=== PATIENT | male | born 1995 | race American Indian/Alaskan Native ===

== ENCOUNTER 2016-03-08 10:00 | Emergency (ER) | payer SELFPAY ==
[2016-03-08 10:34] VITALS: BP 184/121
--- NOTE | 2016-03-08 10:45 | Emergency Department Report ---
Chief Complaint: High BP Stated Complaint: VOMITING/ELEVATED B/P/HEADACHE Time Seen by Provider: 03/08/16 10:43 - HPI History of Present Illness: 20 year old male with hx of htn, CHF presents with throbbing right sided headache with associated NV earlier today with elevated BP. states taking all medication this morning. denies other symptoms. - Exam Vital Signs: Vital Signs 03/08/16 10:30 Temperature 98.4 F Pulse Rate 75 Respiratory 18 Rate Blood Pressure 184/121 O2 Sat by Pulse 100 Oximetry Physical Exam: patient AOX3 BP is elevated normal gait and coordination. MSE screening note: Focused history and physical exam performed. Due to findings the following was ordered: due to patient PMH and presenting symptoms, labwork and EKG was ordered until seen in the main side. ED Disposition for MSE Condition: Stable
[2016-03-08 11:51] LABS: Basophils % (Auto) 0.6 % (0.0-1.8); Eosinophils % (Auto) 1.4 % (0.0-4.3); Hemoglobin 13.2 gm/dl (11.8-15.2); Mean Corpuscular HGB Conc 32 % (32-34); Mean Corpuscular Hemoglobin 27 pg (28-32); Mean Corpuscular Volume 83 fl (84-94); Platelet Count 247 K/mm3 (140-440); Red Blood Count 4.96 M/mm3 (3.65-5.03); White Blood Count 5.4 K/mm3 (4.5-11.0)
[2016-03-08 12:05] LABS: Albumin/Globulin Ratio 1.2 %; BUN/Creatinine Ratio 8.88; Bilirubin,Total 0.4 mg/dL (0.1-1.2); Calcium 8.8 mg/dL (8.4-10.2); Chloride 103.1 mmol/L (98-107); Potassium 4.4 mmol/L (3.6-5.0); Total Protein 7.4 g/dL (6.3-8.2)
--- NOTE | 2016-03-12 00:36 | ED Elopement Review ---
ED Pt Elopement review - Results review Lab results: Laboratory Tests 03/08/16 03/08/16 11:34 11:34 WBC 5.4 RBC 4.96 Hgb 13.2 Hct 41.0 MCV 83 L MCH 27 L MCHC 32 RDW 14.0 Plt Count 247 Lymph % (Auto) 14.0 [place] % (Auto) 8.2 H Eos % (Auto) 1.4 Baso % (Auto) 0.6 Lymph # 0.8 L [place] # 0.4 Eos # 0.1 Baso # 0.0 Seg Neutrophils % 75.8 H Seg Neutrophils # 4.1 Sodium 139 Potassium 4.4 Chloride 103.1 Carbon Dioxide 20 L Anion Gap 20 BUN 48 H Creatinine 5.4 H Estimated GFR 16 BUN/Creatinine Ratio 8.88 Glucose 89 Calcium 8.8 Total Bilirubin 0.4 AST 16 ALT 10 Alkaline Phosphatase 60 Total Protein 7.4 Albumin 4.0 Albumin/Globulin Ratio 1.2 - Call Back decision Pt Call Back Decision: Call pt to return to ED CHUY (hypertension with headache may require further investigation. Consider CT head)
== END 2016-03-09 00:15 | disposition left against medical advice (07) ==
LOC: ED 10:00
DX: R11.10 Vomiting, unspecified (principal); R51 Headache; Z53.21 Procedure and treatment not carried out due to patient leaving prior to being seen by health care provider
CPT/HCPCS: 36415; 80053; 85025

== ENCOUNTER 2017-08-15 01:18 | Emergency (ER) | payer MEDICAID ==
[2017-08-15] MEDS ORDERED: ZOFRAN ODT ONE (03:16)
[2017-08-15] MEDS ORDERED: CATAPRES ONE (03:16)
[2017-08-15] MEDS ORDERED: ZOFRAN ODT PO ONE (03:21)
[2017-08-15] MEDS ORDERED: CATAPRES PO ONE (03:21)
[2017-08-15 03:25] LABS: Hematocrit 45.2 % (35.5-45.6); Hemoglobin 14.9 gm/dl (11.8-15.2); Mean Corpuscular HGB Conc 33 % (32-34); Mean Corpuscular Hemoglobin 29 pg (28-32); Mean Corpuscular Volume 87 fl (84-94); Platelet Count 255 K/mm3 (140-440); Red Blood Count 5.19 M/mm3 (3.65-5.03)
[2017-08-15 03:44] LABS: Calcium 9.1 mg/dL (8.4-10.2)
[2017-08-15 03:50] LABS: INR 0.88 (0.87-1.13)
--- NOTE | 2017-08-15 03:57 | Cat Scan Report ---
FINAL REPORT EXAM: CT HEAD/BRAIN WO CON HISTORY: HTN and headache COMPARISON: None available. TECHNIQUE: Axial images obtained skull base through vertex. FINDINGS: No acute intracranial hemorrhage, midline shift or pathologic extra axial fluid collection. Mild asymmetry lateral ventricles, benign variant. Ventricles and cisterns are normal in size and configuration for the patient's age. Leigh-white differentiation preserved. Calvarium grossly intact. Visualized ocular globes are grossly unremarkable. Visualized para-nasal sinuses and mastoid air cells are clear. IMPRESSION: No grossly acute intracranial abnormality.
[2017-08-15] MEDS ORDERED: NORCO 5/325 PO ONE (06:50)
--- NOTE | 2017-08-15 06:53 | Emergency Department Report ---
HPI - General Chief Complaint: High BP Time Seen by Provider: 08/15/17 06:10 - HPI HPI: 21-year-old male presents to the emergency department with complaint of uncontrolled hypertension and a headache. Headache has been going on since 5 PM yesterday. When he first came into the hospital it was 10 out of 10 in intensity but I saw the patient just after coming onto shift this morning and he currently says it is 3 out of 10. His blood pressure when he came in was 193/118 and it is much improved now down to about 156/98 with some clonidine given overnight. Patient has a history of hypertension issues that caused him to become end-stage renal disease on hemodialysis on Monday/Monday /Monday and he did have his dialysis yesterday, Monday. His restaurant hospitality manager is Dr. Fernández and he does not have a primary care physician. He did not take anything for her symptoms prior presentation. He denies any tobacco or illicit drug use or abuse. He denies any fever, chest pain, shortness of breath, nausea , vomiting, vision change or slurred speech. ED Past Medical Hx - Past Medical History Previous Medical History?: Yes Hx Hypertension: Yes Hx Congestive Heart Failure: No Hx Diabetes: No Hx Renal Disease: Yes (HD M,W,F Dr. Randall) Hx Asthma: No Hx COPD: No Hx HIV: No - Surgical History Past Surgical History?: Yes Additional Surgical History: Dialysis access - Social History Smoking Status: Never Smoker - Medications Home Medications: Home Medications Medication Instructions Recorded Confirmed Last Taken Type Carvedilol [Coreg] 25 mg PO BID #60 tablet 09/10/14 01/11/16 01/11/16 Rx Ondansetron [Zofran ODT TAB] 4 mg PO Q8HR #20 tab.rapdis 01/11/16 Unknown Rx Pantoprazole [Protonix TAB] 40 mg PO QDAY #30 tablet 01/11/16 Unknown Rx oxyCODONE /ACETAMINOPHEN [Percocet 1 tab PO Q6HR PRN #20 tablet 01/11/16 Unknown Rx 5/325 mg] Bumetanide [Bumex 1 mg tab] 1 mg PO QDAY #30 tablet 01/18/16 Unknown Rx Minoxidil [Loniten] 10 mg PO BID 30 Days tablet 01/18/16 Unknown Rx NIFEdipine XL [Procardia Xl] 120 mg PO QDAY #30 tablet 01/18/16 Unknown Rx Spironolactone [Aldactone] 25 mg PO QDAY #30 tablet 01/18/16 Unknown Rx cloNIDine [Catapres] 0.3 mg PO Q8HR 90 Days tablet 01/18/16 Unknown Rx ED Review of Systems ROS: Stated complaint: HYPERTENSIVE Other details as noted in HPI Comment: All other systems reviewed and negative Constitutional: denies: chills, fever Eyes: denies: eye pain, eye discharge, vision change ENT: denies: ear pain, throat pain Respiratory: denies: cough, shortness of breath, wheezing Cardiovascular: denies: chest pain, palpitations Gastrointestinal: denies: abdominal pain, nausea, diarrhea Genitourinary: denies: urgency, dysuria Musculoskeletal: denies: back pain, joint swelling, arthralgia Skin: denies: rash, lesions Neurological: headache. denies: weakness Physical Exam - Physical Exam Vital Signs: Vital Signs 08/15/17 08/15/17 08/15/17 02:28 02:55 03:24 Temperature 98.4 F 98.4 F Pulse Rate 100 H 99 H 99 H Respiratory 16 16 Rate Blood Pressure 193/118 193/118 193/118 Blood Pressure [Left] O2 Sat by Pulse 98 96 Oximetry 08/15/17 08/15/17 08/15/17 04:49 05:00 05:04 Temperature Pulse Rate 82 Respiratory 20 Rate Blood Pressure 149/96 Blood Pressure 165/98 [Left] O2 Sat by Pulse 96 96 100 Oximetry 08/15/17 08/15/17 08/15/17 05:16 05:30 05:45 Temperature Pulse Rate Respiratory Rate Blood Pressure 149/96 155/88 Blood Pressure [Left] O2 Sat by Pulse 97 93 95 Oximetry 08/15/17 06:00 Temperature Pulse Rate Respiratory Rate Blood Pressure 165/90 Blood Pressure [Left] O2 Sat by Pulse 93 Oximetry Physical Exam: GENERAL: The patient is well-developed well-nourished. HENT: Normocephalic. Atraumatic. Patient has moist mucous membranes. EYES: Extraocular motions are intact. Pupils equal reactive to light bilaterally. No nystagmus. NECK: Supple. Trachea is midline. CHEST/LUNGS: Clear to auscultation. There is no respiratory distress noted. HEART/CARDIOVASCULAR: Regular. There is no tachycardia. There is no murmur. ABDOMEN: Abdomen is soft, nontender. Patient has normal bowel sounds. There is no abdominal distention. SKIN: Skin is warm and dry. NEURO: The patient is awake, alert, and oriented. The patient is cooperative. The patient has no focal neurologic deficits. The patient has normal speech. Cranial nerves II through XII grossly intact. MUSCULOSKELETAL: There is no tenderness or deformity. There is no evidence of acute injury. There appears to be a patent left upper extremity dialysis fistula. ED Course Vital Signs 08/15/17 08/15/17 08/15/17 02:28 02:55 03:24 Temperature 98.4 F 98.4 F Pulse Rate 100 H 99 H 99 H Respiratory 16 16 Rate Blood Pressure 193/118 193/118 193/118 Blood Pressure [Left] O2 Sat by Pulse 98 96 Oximetry 08/15/17 08/15/17 08/15/17 04:49 05:00 05:04 Temperature Pulse Rate 82 Respiratory 20 Rate Blood Pressure 149/96 Blood Pressure 165/98 [Left] O2 Sat by Pulse 96 96 100 Oximetry 08/15/17 08/15/17 08/15/17 05:16 05:30 05:45 Temperature Pulse Rate Respiratory Rate Blood Pressure 149/96 155/88 Blood Pressure [Left] O2 Sat by Pulse 97 93 95 Oximetry 08/15/17 06:00 Temperature Pulse Rate Respiratory Rate Blood Pressure 165/90 Blood Pressure [Left] O2 Sat by Pulse 93 Oximetry ED Medical Decision Making - Lab Data Result diagrams: 08/15/17 03:05 08/15/17 03:05 - Radiology Data Radiology results: report reviewed CT of the head does not show any acute intracranial process including no ischemia, shift, mass, bleeding or skull fracture. - Medical Decision Making Patient presented with some later blood pressure and a headache. This morning he was given some clonidine and some Zofran. CT of the head did not show any bleed, shift, mass or any acute process. His blood pressure came down to a more reasonable level and with it the headache decreased in intensity. He was given a [place] prior to discharge to help finish off the headache. No focal, motor or sensory deficits and his cranial nerves are intact. His labs otherwise show some renal sufficiency but he has end-stage renal disease on hemodialysis. He has been encouraged to follow up with his primary care physician, restaurant hospitality manager and continue with his dialysis regiment. He'll return to the ER with any worsening of his symptoms or any acute distress. - Differential Diagnosis tension headache, migraine, cluster headache, brain bleed Critical Care Time: No Critical care attestation.: If time is entered above; I have spent that time in minutes in the direct care of this critically ill patient, excluding procedure time. ED Disposition Clinical Impression: Hypertensive urgency, ESRD (end stage renal disease) on dialysis Headache Qualifiers: Headache type: unspecified Headache chronicity pattern: acute headache Intractability: not intractable Qualified Code(s): R51 - Headache Disposition: DC-01 TO HOME OR SELFCARE Is pt being admited?: No Condition: Good Instructions: Chronic Kidney Disease (ED), Acute Headache (ED), Hypertension ( ED) Additional Instructions: Please follow-up with your restaurant hospitality manager and continue your dialysis schedule. Return to the emergency Department with any worsening of your symptoms or with any acute distress. Referrals: PRIMARY MD OSMANI [Primary Care Provider] - 3-5 Days SHANIQUA RANDALL MD [Staff Physician] - 3-5 Days [facility] [Outside] - 3-5 Days Forms: Accompanied Note, Work/School Release Form(ED) Time of Disposition: 07:04
[2017-08-15 07:56] VITALS: BP 156/89
== END 2017-08-15 07:43 | disposition home or self-care (01) ==
LOC: ED 01:18
DX: I12.0 Hypertensive chronic kidney disease with stage 5 chronic kidney disease or end stage renal disease (principal); N18.6 End stage renal disease; Z99.2 Dependence on renal dialysis; R51 Headache
CPT/HCPCS: 36415; 70450; 80048; 85027; 85610; 85730; Q0162

== ENCOUNTER 2018-09-13 12:00 | Outpatient (CLI) | payer MEDICAID ==
--- NOTE | 2018-09-13 13:10 | XRay Report ---
CHEST 2 VIEWS INDICATION: R04.2 HEMOPTYSIS. COMPARISON: FINDINGS: Support devices: None. Heart: Within normal limits. Lungs/pleura: No acute air space or interstitial disease. No pneumothorax. Additional findings: None. IMPRESSION: No acute findings. Signer Name: Raphael Kemp Jr, MD Signed: 09/13/2018 1:06 PM Workstation Name: [id number]
== END 2018-09-13 12:01 | disposition home or self-care (01) ==
LOC: XRAY 12:00
PROVIDERS: ATTEND Internal Medicine
DX: R04.2 Hemoptysis (principal); I13.0 Hypertensive heart and chronic kidney disease with heart failure and stage 1 through stage 4 chronic kidney disease, or unspecified chronic kidney disease; I50.9 Heart failure, unspecified; N18.3 Chronic kidney disease, stage 3 (moderate)
CPT/HCPCS: 71046

== ENCOUNTER 2018-09-27 09:18 | Outpatient (CLI) | payer MEDICAID ==
[2018-09-27 11:08] LABS: Hemoglobin 9.9 gm/dl (11.8-15.2); Mean Corpuscular HGB Conc 33 % (32-34); Mean Corpuscular Volume 88 fl (84-94); Platelet Count 335 K/mm3 (140-440); Red Blood Count 3.42 M/mm3 (3.65-5.03); Red Cell Distribution Width 15.9 % (13.2-15.2)
[2018-09-27 11:36] LABS: Chol/HDL Ratio 2.87 %
== END 2018-09-27 09:19 | disposition home or self-care (01) ==
LOC: LAB 09:18
PROVIDERS: ATTEND Internal Medicine
DX: Z13.220 Encounter for screening for lipoid disorders (principal); Z13.1 Encounter for screening for diabetes mellitus; I10 Essential (primary) hypertension
CPT/HCPCS: 36415; 80061; 83036; 84443; 85027

== ENCOUNTER 2018-10-31 12:32 | Outpatient (CLI) | payer MEDICAID ==
--- NOTE | 2018-10-31 14:50 | Cat Scan Report ---
CT chest wo con INDICATION / CLINICAL INFORMATION: R04.2 HEMOPTYSIS. TECHNIQUE: All CT scans at this location are performed using CT dose reduction for ALARA by means of automated e xposure control. COMPARISON: None available. FINDINGS: There is mild generalized cardiomegaly with prominence of the central pulmonary vessels. There is mil d diffuse interstitial lung disease, more prominent in the lower lung zones, with Rodríguez B lines pres ent. There are small bilateral pleural effusions. The tracheobronchial tree is normal. I see no evidence of consolidation, mass or adenopathy. The visu alized upper abdomen is normal. There are few Schmorl's nodes scattered throughout the thoracic spine . IMPRESSION:Cardiomegaly and mild congestive heart failure. Signer Name: Lei Sheth MD Signed: 10/31/2018 2:45 PM Workstation Name: [id number]
== END 2018-10-31 12:33 | disposition home or self-care (01) ==
LOC: CT 12:32
PROVIDERS: ATTEND Internal Medicine
DX: I11.0 Hypertensive heart disease with heart failure (principal); I50.9 Heart failure, unspecified
CPT/HCPCS: 71250

== ENCOUNTER 2019-02-26 00:40 | Inpatient (IN) | payer MEDICAID ==
--- NOTE | 2019-02-26 00:58 | Emergency Department Report ---
ED Shortness of Breath HPI - General Chief Complaint: Dyspnea/Respdistress Stated Complaint: SOB Time Seen by Provider: 02/26/19 00:50 Source: patient, EMS Mode of arrival: Stretcher Limitations: No Limitations - History of Present Illness Initial Comments: Patient is 23 years old male with history of end stage renal disease on hemodialysis. Patient brought to the emergency room via EMS for evaluation of shortness of breath and difficulty breathing since last night. Patient stated that he missed his dialysis yesterday. Patient denied any chest pain, fever or chills. MD Complaint: shortness of breath, cough -: Last night Severity: moderate Treatments Prior to Arrival: oxygen - Related Data Home Medications Medication Instructions Recorded Confirmed Last Taken Clonidine HCl [Catapres] 0.3 mg PO BID 02/26/19 02/26/19 Unknown Hydralazine HCl 50 mg PO BID 02/26/19 02/26/19 Unknown Previous Rx's Medication Instructions Recorded Last Taken Type carvediloL [Coreg] 25 mg PO BID #60 tablet 09/10/14 01/11/16 Rx Ondansetron [Zofran ODT TAB] 4 mg PO Q8HR #20 tab.rapdis 01/11/16 Unknown Rx Pantoprazole [Protonix TAB] 40 mg PO QDAY #30 tablet 01/11/16 Unknown Rx NIFEdipine XL [Procardia Xl] 120 mg PO QDAY #30 tablet 01/18/16 Unknown Rx Allergies Allergy/AdvReac Type Severity Reaction Status Date / Time No Known Allergies Allergy Unverified 06/30/13 16:18 ED Review of Systems ROS: Stated complaint: SOB Other details as noted in HPI Comment: All other systems reviewed and negative Constitutional: denies: chills, fever Respiratory: cough, orthopnea, shortness of breath, SOB with exertion, SOB at rest. denies: wheezing Cardiovascular: dyspnea on exertion, orthopnea. denies: chest pain, palpitations ED Past Medical Hx - Past Medical History Previous Medical History?: Yes Hx Hypertension: Yes Hx Congestive Heart Failure: No Hx Diabetes: No Hx Renal Disease: Yes (HD M,W,F Dr. Randall) Hx Asthma: No Hx COPD: No Hx HIV: No - Surgical History Past Surgical History?: Yes Additional Surgical History: Dialysis access - Social History Smoking Status: Current Every Day Smoker Substance Use Type: None - Medications Home Medications: Home Medications Medication Instructions Recorded Confirmed Last Taken Type carvediloL [Coreg] 25 mg PO BID #60 tablet 09/10/14 02/26/19 01/11/16 Rx Ondansetron [Zofran ODT TAB] 4 mg PO Q8HR #20 tab.rapdis 01/11/16 02/26/19 Unknown Rx Pantoprazole [Protonix TAB] 40 mg PO QDAY #30 tablet 01/11/16 02/26/19 Unknown Rx NIFEdipine XL [Procardia Xl] 120 mg PO QDAY #30 tablet 01/18/16 02/26/19 Unknown Rx Clonidine HCl [Catapres] 0.3 mg PO BID 02/26/19 02/26/19 Unknown History Hydralazine HCl 50 mg PO BID 02/26/19 02/26/19 Unknown History ED Physical Exam - General Limitations: No Limitations General appearance: alert, in distress (moderate respiratory distress) - Head Head exam: Present: atraumatic, normocephalic, normal inspection - Eye Eye exam: Present: normal appearance - ENT ENT exam: Present: normal exam, normal orophraynx, mucous membranes moist - Neck Neck exam: Present: normal inspection, full ROM. Absent: tenderness, meningismus, lymphadenopathy, thyromegaly - Respiratory Respiratory exam: Present: respiratory distress, rales, rhonchi, decreased breath sounds. Absent: wheezes, stridor, accessory muscle use, prolonged expiratory - Cardiovascular Cardiovascular Exam: Present: regular rate, normal rhythm, normal heart sounds - GI/Abdominal GI/Abdominal exam: Present: soft, normal bowel sounds. Absent: distended, tenderness, guarding, rebound, rigid, organomegaly, mass, bruit, pulsatile mass, hernia - Extremities Exam Extremities exam: Present: normal inspection, full ROM, normal capillary refill. Absent: tenderness, pedal edema, calf tenderness - Back Exam Back exam: Present: normal inspection, full ROM. Absent: CVA tenderness (R), CVA tenderness (L) - Neurological Exam Neurological exam: Present: alert, oriented X3, CN II-XII intact, normal gait, reflexes normal - Psychiatric Psychiatric exam: Present: normal mood - Skin Skin exam: Present: warm, intact, normal color ED Course Vital Signs 02/26/19 02/26/19 02/26/19 00:50 01:00 01:16 Temperature 99.7 F H Pulse Rate 110 H 110 H 108 H Respiratory 15 15 20 Rate Blood Pressure 180/97 180/97 189/119 Blood Pressure 180/97 [Right] O2 Sat by Pulse 97 97 97 Oximetry 02/26/19 02/26/19 02/26/19 01:30 02:00 02:28 Temperature Pulse Rate 112 H 108 H 110 H Respiratory 29 H 29 H Rate Blood Pressure 187/123 184/110 179/109 Blood Pressure [Right] O2 Sat by Pulse 95 95 Oximetry 02/26/19 02/26/19 02:30 02:46 Temperature Pulse Rate 110 H 113 H Respiratory 16 27 H Rate Blood Pressure 179/109 188/120 Blood Pressure [Right] O2 Sat by Pulse 96 96 Oximetry ED Medical Decision Making - Lab Data Result diagrams: 02/26/19 00:59 02/26/19 00:59 - EKG Data -: EKG Interpreted by Me EKG shows normal: sinus rhythm Rate: tachycardia - EKG Data Interpretation: no acute changes - Radiology Data Radiology results: report reviewed - Medical Decision Making Patient is 23 years old male with history of end stage renal disease on hemodialysis. Patient brought to the emergency room via EMS for evaluation of shortness of breath and difficulty breathing since last night. Patient stated that he missed his dialysis yesterday. Patient denied any chest pain, fever or chills. Labs reviewed and is unremarkable except for chronic elevation of his creatinine. Chest x-ray showed bilateral pleural effusion. Potassium is 3.7. Patient is in obvious volume overload status. I discussed the patient with Dr. Colon, nephrologists, she advised to admitted patient to the hospitalist and they will do dialysis in the morning. I discussed the patient with Dr. Rhodes, he agreed to admit the patient to medical service for further management. Critical Care Time: Yes Critical care time in (mins) excluding proc time.: 30 Critical care attestation.: If time is entered above; I have spent that time in minutes in the direct care of this critically ill patient, excluding procedure time. ED Disposition Clinical Impression: Volume overload, End-stage renal disease needing dialysis, Shortness of breath, Hypertensive emergency Disposition: OP ADMIT IP TO THIS HOSP Is pt being admited?: Yes Condition: Stable Instructions: Hypertension (ED)
[2019-02-26 01:41] LABS: Basophils % (Auto) 0.3 % (0.0-1.8); Eosinophils # (Auto) 0.1 K/mm3 (0.0-0.4); Eosinophils % (Auto) 1.4 % (0.0-4.3); Hematocrit 32.7 % (35.5-45.6); Hemoglobin 10.7 gm/dl (11.8-15.2); Lymphocytes # (Auto) 0.2 K/mm3 (1.2-5.4); Lymphocytes % (Auto) 2.1 % (13.4-35.0); Mean Corpuscular HGB Conc 33 % (32-34); Mean Corpuscular Volume 87 fl (84-94); Monocytes # (Auto) 0.7 K/mm3 (0.0-0.8); Monocytes % (Auto) 7.2 % (0.0-7.3); Platelet Count 261 K/mm3 (140-440); Red Blood Count 3.75 M/mm3 (3.65-5.03); Red Cell Distribution Width 16.6 % (13.2-15.2)
--- NOTE | 2019-02-26 01:52 | XRay Report ---
CHEST 1 VIEW INDICATION: Dyspnea. COMPARISON: 09/13/2018 FINDINGS: SUPPORT DEVICES: None. HEART / MEDIASTINUM: Persisting cardiac enlargement LUNGS / PLEURA: No evidence of consolidation or atelectasis. Oblique homogeneous densities present ri ght lower lung zone, probably representing loculation of fluid within the fissure ADDITIONAL FINDINGS : IMPRESSION: 1. Loculated right pleural effusion Signer Name: Michael Mir MD Signed: 02/26/2019 1:48 AM Workstation Name: [id number]
[2019-02-26 01:55] LABS: Calcium 7.9 mg/dL (8.4-10.2)
[2019-02-26] MEDS ORDERED: hydrALAZINE 20 MG/1 ML INJ IV ONE ×2 (02:23→05:14)
[2019-02-26] MEDS ORDERED: ONDANSETRON 4 MG/2 ML INJ IV PRN (02:39)
[2019-02-26] MEDS ORDERED: MAGNESIUM HYDROXIDE (MOM) ORAL LIQD UDC PO PRN (02:39)
[2019-02-26] MEDS ORDERED: MORPHINE 2 MG/1 ML INJ IV PRN (02:39)
[2019-02-26] MEDS ORDERED: ACETAMINOPHEN 325 MG TAB PO PRN (02:39)
--- NOTE | 2019-02-26 02:54 | History and Physical Report ---
History of Present Illness Date of examination: 02/26/19 Date of admission: 02/26/19 Chief complaint: Shortness of breath History of present illness: 3-year-old -Stateless male with known history of hypertension, end-stage renal disease on dialysis Monday and Monday presenting to the emergency room today complaining of shortness of breath. He denies any chest pain, no nausea vomiting, no fever or chills. Patient admits that he missed his dialysis on Monday because he had to attend the [facility] [place] of his child. Evaluation in the emergency room including chest x-ray reveals pleural effusion. He was also hypertensive upon arrival in the emergency room. He has been given IV hydralazine. Electrical Discharge Machine Operator on-call has been notified by the ER physician and patient will be dialyzed in the a.m. Past History Past Medical History: hypertension Past Surgical History: Other (Left arm AV fistula placement) Social history: smoking (Smokes about 1 to 2 cigarettes daily) Family history: no significant family history Medications and Allergies Allergies Allergy/AdvReac Type Severity Reaction Status Date / Time No Known Allergies Allergy Unverified 06/30/13 16:18 Home Medications Medication Instructions Recorded Confirmed Last Taken Type carvediloL [Coreg] 25 mg PO BID #60 tablet 09/10/14 02/26/19 01/11/16 Rx Ondansetron [Zofran ODT TAB] 4 mg PO Q8HR #20 tab.rapdis 01/11/16 02/26/19 Unknown Rx Pantoprazole [Protonix TAB] 40 mg PO QDAY #30 tablet 01/11/16 02/26/19 Unknown Rx NIFEdipine XL [Procardia Xl] 120 mg PO QDAY #30 tablet 01/18/16 02/26/19 Unknown Rx Clonidine HCl [Catapres] 0.3 mg PO BID 02/26/19 02/26/19 Unknown History Hydralazine HCl 50 mg PO BID 02/26/19 02/26/19 Unknown History Active Meds: Active Medications Acetaminophen (Tylenol) 650 mg PO Q4H PRN PRN Reason: Pain MILD(1-3)/Fever >100.5/TAN Magnesium Hydroxide (Milk Of Magnesia) 30 ml PO Q4H PRN PRN Reason: Constipation Morphine Sulfate (Morphine) 2 mg IV Q4H PRN PRN Reason: Pain, Moderate (4-6) Ondansetron HCl (Zofran) 4 mg IV Q8H PRN PRN Reason: Nausea And Vomiting Sodium Chloride (Sodium Chloride Flush Syringe 10 Ml) 10 ml IV BID KING Sodium Chloride (Sodium Chloride Flush Syringe 10 Ml) 10 ml IV PRN PRN PRN Reason: LINE FLUSH Review of Systems Respiratory: shortness of breath Exam - Constitutional Vitals: Temp Pulse Resp BP Pulse Ox 99.7 F H 110 H 29 H 179/109 95 02/26/19 00:50 02/26/19 02:28 02/26/19 02:00 02/26/19 02:28 02/26/19 02:00 General appearance: Present: no acute distress, well-nourished - EENT Eyes: Present: PERRL, EOM intact ENT: hearing intact, clear oral mucosa, dentition normal - Neck Neck: Present: supple, normal ROM - Respiratory Respiratory: bilateral: rales - Cardiovascular Rhythm: regular Heart Sounds: Present: S1 & S2 - Extremities Extremities: no ischemia, pulses intact, pulses symmetrical, Full ROM Extremity abnormal: edema (Trace ankle edema bilaterally), other (Left upper extremity AV fistula with palpable thrill) Peripheral Pulses: within normal limits - Abdominal General gastrointestinal: Present: soft, non-tender, non-distended - Integumentary Integumentary: Present: clear, warm, dry - Musculoskeletal Musculoskeletal: strength equal bilaterally - Psychiatric Psychiatric: appropriate mood/affect, intact judgment & insight, cooperative - Neurologic Neurologic: CNII-XII intact, moves all extremities Results - Labs CBC & Chem 7: 02/26/19 00:59 02/26/19 00:59 Labs: Abnormal lab results 02/26/19 02/26/19 Range/Units 00:59 00:59 Hgb 10.7 L (11.8-15.2) gm/dl Hct 32.7 L (35.5-45.6) % RDW 16.6 H (13.2-15.2) % Lymph % (Auto) 2.1 L (13.4-35.0) % Lymph # 0.2 L (1.2-5.4) K/mm3 Seg Neutrophils % 89.0 H (40.0-70.0) % Seg Neutrophils # 9.1 H (1.8-7.7) K/mm3 Carbon Dioxide 17 L (22-30) mmol/L BUN 58 H (9-20) mg/dL Creatinine 11.6 H (0.8-1.5) mg/dL Glucose 101 H (75-100) mg/dL Calcium 7.9 L (8.4-10.2) mg/dL Assessment and Plan - Patient Problems (1) End-stage renal disease needing dialysis Current Visit: Yes Status: Acute Plan to address problem: He is on dialysis on Monday and Monday. However he missed his last dialysis. He is scheduled for dialysis in the a.m. (2) Volume overload Current Visit: Yes Status: Acute Plan to address problem: Secondary to noncompliance with dialysis. (3) HTN (hypertension), malignant Current Visit: No Status: Acute Plan to address problem: Blood pressure uncontrolled. He has been given IV hydralazine. Will resume routine home medications. Will monitor vital signs closely. (4) DVT prophylaxis Current Visit: No Status: Acute Plan to address problem: Patient placed on subcutaneous heparin. (5) Full code status Current Visit: Yes Status: Acute
[2019-02-26] MEDS ORDERED: cloNIDine 0.1 MG TAB PO ONE (03:36)
[2019-02-26] MEDS ORDERED: cloNIDine 0.1 MG TAB ONE (03:37)
[2019-02-26] MEDS ORDERED: hydrALAZINE 20 MG/1 ML INJ ONE (05:19)
[2019-02-26 09:58] LABS: Hepatitis C Virus Antibody Non-Reactive (NonReactive)
[2019-02-26] MEDS ORDERED: NON-FORMULARY EACH (Clonidine Hcl [Catapres] 0.3 MG) PO SCH (10:00)
[2019-02-26] MEDS ORDERED: NON-FORMULARY EACH (Hydralazine Hcl [Hydralazine Hcl] 50 MG) PO SCH (10:00)
[2019-02-26 10:01] LABS: Hepatitis B Surface Antigen Non-Reactive (Negative)
--- NOTE | 2019-02-26 10:28 | Consultation ---
History of Present Illness - Reason for Consult Consult date: 02/26/19 end stage renal disease, hyperkalemia, metabolic acidosis, accelerated hypertension Requesting physician: KANDACE RAMOS - History of Present Illness Patient is 23 years old male with history of end stage renal disease on hemodialysis. Patient brought to the emergency room via EMS for evaluation of shortness of breath and difficulty breathing since last night. Patient stated that he missed his dialysis yesterday. Patient denied any chest pain, fever or chills. MD Complaint: shortness of breath, cough -: Last night Severity: moderate Treatments Prior to Arrival: oxygen ROS: Stated complaint: SOB Other details as noted in HPI Comment: All other systems reviewed and negative Constitutional: denies: chills, fever Respiratory: cough, orthopnea, shortness of breath, SOB with exertion, SOB at rest. denies: wheezing Cardiovascular: dyspnea on exertion, orthopnea. denies: chest pain, palpitations - Past Medical History Previous Medical History?: Yes Hx Hypertension: Yes Hx Congestive Heart Failure: No Hx Diabetes: No Hx Renal Disease: Yes (HD M,W,F Dr. Randall) Hx Asthma: No Hx COPD: No Hx HIV: No - Surgical History Past Surgical History?: Yes Additional Surgical History: Dialysis access - Social History Smoking Status: Current Every Day Smoker Substance Use Type: None Past History Past Medical History: hypertension Past Surgical History: Other (Left arm AV fistula placement) Social history: smoking (Smokes about 1 to 2 cigarettes daily) Family history: no significant family history Medications and Allergies Allergies Allergy/AdvReac Type Severity Reaction Status Date / Time No Known Allergies Allergy Unverified 06/30/13 16:18 Home Medications Medication Instructions Recorded Confirmed Last Taken Type carvediloL [Coreg] 25 mg PO BID #60 tablet 09/10/14 02/26/19 01/11/16 Rx Ondansetron [Zofran ODT TAB] 4 mg PO Q8HR #20 tab.rapdis 01/11/16 02/26/19 U nknown Rx Pantoprazole [Protonix TAB] 40 mg PO QDAY #30 tablet 01/11/16 02/26/19 Unknown Rx NIFEdipine XL [Procardia Xl] 120 mg PO QDAY #30 tablet 01/18/16 02/26/19 Unknown Rx Clonidine HCl [Catapres] 0.3 mg PO BID 02/26/19 02/26/19 Unknown History Hydralazine HCl 50 mg PO BID 02/26/19 02/26/19 Unknown History Active Meds: Active Medications Acetaminophen (Tylenol) 650 mg PO Q4H PRN PRN Reason: Pain MILD(1-3)/Fever >100.5/TAN Carvedilol (Coreg) 25 mg PO BID [facility] Clonidine HCl (Catapres) 0.3 mg PO BID [facility] Heparin Sodium (Porcine) (Heparin) 5,000 unit SUB-Q Q8HR KING Hydralazine HCl (Apresoline) 50 mg PO BID [facility] Magnesium Hydroxide (Milk Of Magnesia) 30 ml PO Q4H PRN PRN Reason: Constipation Morphine Sulfate (Morphine) 2 mg IV Q4H PRN PRN Reason: Pain, Moderate (4-6) Nifedipine (Procardia Xl) 120 mg PO QDAY KING Ondansetron HCl (Zofran) 4 mg IV Q8H PRN PRN Reason: Nausea And Vomiting Ondansetron HCl (Zofran Odt) 4 mg PO Q8HR KING Pantoprazole Sodium (Protonix) 40 mg PO QDAY [facility] Sodium Chloride (Sodium Chloride Flush Syringe 10 Ml) 10 ml IV BID [facility] Sodium Chloride (Sodium Chloride Flush Syringe 10 Ml) 10 ml IV PRN PRN PRN Reason: LINE FLUSH Exam - Vital Signs Vital signs: Vital Signs Temp Pulse Resp BP Pulse Ox 99.7 F H 110 H 15 180/97 97 02/26/19 00:50 02/26/19 00:50 02/26/19 00:50 02/26/19 00:50 02/26/19 00:50 - Physical Exam Narrative exam: - General Limitations: No Limitations General appearance: alert, in distress (moderate respiratory distress) - Head Head exam: Present: atraumatic, normocephalic, normal inspection - Eye Eye exam: Present: normal appearance - ENT ENT exam: Present: normal exam, normal orophraynx, mucous membranes moist - Neck Neck exam: Present: normal inspection, full ROM. Absent: tenderness, meningismus, lymphadenopathy, thyromegaly - Respiratory Respiratory exam: Present: respiratory distress, rales, rhonchi, decreased breath sounds. Absent: wheezes, stridor, accessory muscle use, prolonged expiratory - Cardiovascular Cardiovascular Exam: Present: regular rate, normal rhythm, normal heart sounds - GI/Abdominal GI/Abdominal exam: Present: soft, normal bowel sounds. Absent: distended, tenderness, guarding, rebound, rigid, organomegaly, mass, bruit, pulsatile mass, hernia - Extremities Exam Extremities exam: Present: normal inspection, full ROM, normal capillary refill. Absent: tenderness, pedal edema, calf tenderness - Back Exam Back exam: Present: normal inspection, full ROM. Absent: CVA tenderness (R), CVA tenderness (L) - Neurological Exam Neurological exam: Present: alert, oriented X3, CN II-XII intact, normal gait, reflexes normal - Psychiatric Psychiatric exam: Present: normal mood - Skin Skin exam: Present: warm, intact, normal color Results - Lab Results 02/26/19 00:59 02/26/19 00:59 Most recent lab results Calcium 7.9 mg/dL (8.4-10.2) L 02/26/19 00:59 Assessment and Plan Impression: * ESRD * volume overload * HTN * noncomplaince with HD PLaN: * hd today and q MWF * uf as tolerated with hd * bp control * renal diet * ok to dc after HD
[2019-02-26] MEDS: carvediloL 25 MG TAB PO SCH ×2 (16:40→22:48)
[2019-02-26] MEDS: PANTOPRAZOLE 40 MG TAB PO SCH (16:40)
[2019-02-26] MEDS: NIFEdipine XL 60 MG TAB PO SCH (16:40)
[2019-02-26] MEDS: hydrALAZINE 25 MG TAB PO SCH ×2 (16:40→22:55)
[2019-02-26] MEDS: ONDANSETRON 4 MG ODT TAB PO SCH ×2 (16:41→22:48)
[2019-02-26] MEDS: HEPARIN 5,000 UNIT/1 ML VIAL SUB-Q SCH ×2 (16:41→22:48)
[2019-02-26] MEDS: cloNIDine 0.1 MG TAB PO SCH ×2 (16:41→22:48)
[2019-02-26] MEDS ORDERED: guaiFENesin DM 200/20 MG ORAL LIQD 10 ML PO PRN (22:53)
[2019-02-27] MEDS: HEPARIN 5,000 UNIT/1 ML VIAL SUB-Q SCH ×2 (05:49→14:03)
[2019-02-27] MEDS: ONDANSETRON 4 MG ODT TAB PO SCH ×2 (05:49→14:03)
[2019-02-27 06:30] LABS: Basophils % (Auto) 0.6 % (0.0-1.8); Eosinophils # (Auto) 0.3 K/mm3 (0.0-0.4); Eosinophils % (Auto) 6.2 % (0.0-4.3); Hematocrit 31.5 % (35.5-45.6); Hemoglobin 10.4 gm/dl (11.8-15.2); Lymphocytes # (Auto) 0.4 K/mm3 (1.2-5.4); Mean Corpuscular HGB Conc 33 % (32-34); Mean Corpuscular Volume 86 fl (84-94); Monocytes # (Auto) 0.8 K/mm3 (0.0-0.8); Monocytes % (Auto) 15.4 % (0.0-7.3); Platelet Count 227 K/mm3 (140-440); Red Blood Count 3.66 M/mm3 (3.65-5.03); Red Cell Distribution Width 16.4 % (13.2-15.2)
[2019-02-27 06:54] LABS: Calcium 7.9 mg/dL (8.4-10.2)
[2019-02-27 07:00] LABS: INR 1.11 (0.87-1.13)
[2019-02-27] MEDS: cloNIDine 0.1 MG TAB PO SCH (09:26)
[2019-02-27] MEDS: NIFEdipine XL 60 MG TAB PO SCH (09:26)
[2019-02-27] MEDS: carvediloL 25 MG TAB PO SCH (09:27)
[2019-02-27] MEDS: hydrALAZINE 25 MG TAB PO SCH (09:27)
[2019-02-27] MEDS: PANTOPRAZOLE 40 MG TAB PO SCH (09:27)
--- NOTE | 2019-02-27 10:26 | Progress Note ---
Assessment and Plan Impression: * ESRD * volume overload * HTN * noncomplaince with HD PLaN: * hd today and q MWF * uf as tolerated with hd * bp control * renal diet * ok to dc after HD Subjective Date of service: 02/27/19 Principal diagnosis: esrd Interval history: resting in bed today Objective - Exam Narrative Exam: - General Limitations: No Limitations General appearance: alert, in distress (moderate respiratory distress) - Head Head exam: Present: atraumatic, normocephalic, normal inspection - Eye Eye exam: Present: normal appearance - ENT ENT exam: Present: normal exam, normal orophraynx, mucous membranes moist - Neck Neck exam: Present: normal inspection, full ROM. Absent: tenderness, meningismus, lymphadenopathy, thyromegaly - Respiratory Respiratory exam: Present: respiratory distress, rales, rhonchi, decreased breath sounds. Absent: wheezes, stridor, accessory muscle use, prolonged expiratory - Cardiovascular Cardiovascular Exam: Present: regular rate, normal rhythm, normal heart sounds - GI/Abdominal GI/Abdominal exam: Present: soft, normal bowel sounds. Absent: distended, tenderness, guarding, rebound, rigid, organomegaly, mass, bruit, pulsatile mass, hernia - Extremities Exam Extremities exam: Present: normal inspection, full ROM, normal capillary refill. Absent: tenderness, pedal edema, calf tenderness - Back Exam Back exam: Present: normal inspection, full ROM. Absent: CVA tenderness (R), CVA tenderness (L) - Neurological Exam Neurological exam: Present: alert, oriented X3, CN II-XII intact, normal gait, reflexes normal - Psychiatric Psychiatric exam: Present: normal mood - Skin Skin exam: Present: warm, intact, normal color - Vital Signs Vital signs: Vital Signs - 12hr 02/26/19 02/26/19 02/27/19 22:48 23:57 00:28 Temperature 100.3 F H Pulse Rate 98 H 91 H Respiratory 18 Rate Blood Pressure 120/72 112/60 O2 Sat by Pulse 97 Oximetry 02/27/19 02/27/19 02/27/19 04:00 04:15 04:34 Temperature 98.8 F Pulse Rate 84 84 Respiratory 18 Rate Blood Pressure 118/61 O2 Sat by Pulse 94 Oximetry 02/27/19 07:52 Temperature 99.7 F H Pulse Rate 82 Respiratory 20 Rate Blood Pressure 130/79 O2 Sat by Pulse 96 Oximetry - Lab 02/27/19 05:26 02/27/19 05:26 Most recent lab results Calcium 7.9 mg/dL (8.4-10.2) L 02/27/19 05:26 Medications & Allergies - Medications Allergies/Adverse Reactions: Allergies No Known Allergies Allergy (Unverified 06/30/13 16:18) Home Medications: Home Medications Medication Instructions Recorded Confirmed Last Taken Type carvediloL [Coreg] 25 mg PO BID #60 tablet 09/10/14 02/26/19 01/11/16 Rx Ondansetron [Zofran ODT TAB] 4 mg PO Q8HR #20 tab.rapdis 01/11/16 02/26/19 Unknown Rx Pantoprazole [Protonix TAB] 40 mg PO QDAY #30 tablet 01/11/16 02/26/19 Unknown Rx NIFEdipine XL [Procardia Xl] 120 mg PO QDAY #30 tablet 01/18/16 02/26/19 Unknown Rx Clonidine HCl [Catapres] 0.3 mg PO BID 02/26/19 02/26/19 Unknown History Hydralazine HCl 50 mg PO BID 02/26/19 02/26/19 Unknown History Active Medications: Generic Name Dose Route Start Last Admin Trade Name Freq PRN Reason Stop Dose Admin Acetaminophen 650 mg 02/26/19 02:39 02/26/19 20:29 Tylenol PO 650 mg Q4H PRN Administration Pain MILD(1-3)/Fever >100.5/TAN Carvedilol 25 mg 02/26/19 10:00 02/27/19 09:27 Coreg PO 25 mg BID KING Administration Clonidine HCl 0.3 mg 02/26/19 10:00 02/27/19 09:26 Catapres PO 0.3 mg BID KING Administration Guaifenesin 10 ml 02/26/19 22:53 02/26/19 23:05 Guaifenesin Dm Syrup PO 10 ml Q6H PRN Administration Cough Heparin Sodium (Porcine) 5,000 unit 02/26/19 14:00 02/27/19 05:49 Heparin SUB-Q 5,000 unit Q8HR KING Administration Hydralazine HCl 50 mg 02/26/19 10:00 02/27/19 09:27 Apresoline PO 50 mg BID KING Administration Magnesium Hydroxide 30 ml 02/26/19 02:39 Milk Of Magnesia PO Q4H PRN Constipation Morphine Sulfate 2 mg 02/26/19 02:39 Morphine IV Q4H PRN Pain, Moderate (4-6) Nifedipine 120 mg 02/26/19 10:00 02/27/19 09:26 Procardia Xl PO 120 mg QDAY KING Administration Ondansetron HCl 4 mg 02/26/19 02:39 Zofran IV Q8H PRN Nausea And Vomiting Ondansetron HCl 4 mg 02/26/19 14:00 02/27/19 05:49 Zofran Odt PO 4 mg Q8HR KING Administration Pantoprazole Sodium 40 mg 02/26/19 10:00 02/27/19 09:27 Protonix PO 40 mg QDAY KING Administration Sodium Chloride 10 ml 02/26/19 10:00 02/27/19 09:27 Sodium Chloride Flush Syringe 10 Ml IV 10 ml BID KING Administration Sodium Chloride 10 ml 02/26/19 02:39 Sodium Chloride Flush Syringe 10 Ml IV PRN PRN LINE FLUSH
--- NOTE | 2019-02-27 13:48 | Event Note ---
Date: 02/26/19 Pt seen and examined 23-year-old -Surinamese male with known history of hypertension, end-stage renal disease on dialysis Monday and Monday presenting to the emergency room today complaining of shortness of breath. Evaluation in the emergency room including chest x-ray reveals pleural effusion. He was also hypertensive upon arrival in the emergency room. He has been given IV hydralazine. Visiting Teacher on-call has been notified by the ER physician and patient dialyzed today and has plan for tomorrow. Tolerating diet, cont current mx and plan
--- NOTE | 2019-02-27 13:55 | Discharge Summary ---
Providers - Providers Date of Admission: 02/26/19 03:22 Date of discharge: 02/27/19 Attending physician: SHANDA MAGUIRE 02/26/19 02:09 Consult to Physician [CONS] Stat Comment: Dr. Mosley spoke with Dr. Randle @ [phone] Consulting Provider: KIM OLIVER Physician Instructions: Reason For Exam: end-stage renal disease, volume overload Primary care physician: BRENDA PARADA Hospitalization Condition: Stable Hospital course: 23-year-old -Malian male with known history of hypertension, end-stage renal disease on dialysis Monday and Monday presenting to the emergency room today complaining of shortness of breath. Evaluation in the emergency room including chest x-ray reveals pleural effusion. He was also hypertensive upon arrival in the emergency room. He has been given IV hydralazine. Foam Caster on-call has been notified by the ER physician and patient dialyzed x2 He was feeling better, BP was stable, he was then discharged home in stable condition. Discharge diagnosis: (1) End-stage renal disease needing dialysis (2) Volume overload with respiratory distress Secondary to noncompliance with dialysis. (3) HTN (hypertension), malignant (4) DVT prophylaxis Patient placed on subcutaneous heparin. Disposition: DC-30 STILL A PATIENT Time spent for discharge: 34 minutes Core Measure Documentation - Palliative Care Palliative Care/ Comfort Measures: Not Applicable - Core Measures Any of the following diagnoses?: history only Exam - Constitutional Vitals: Temp Pulse Resp BP Pulse Ox 99.7 F H 82 20 130/79 96 02/27/19 07:52 02/27/19 07:52 02/27/19 07:52 02/27/19 07:52 02/27/19 07:52 General appearance: Present: no acute distress, well-nourished - EENT Eyes: Present: PERRL ENT: hearing intact, clear oral mucosa - Neck Neck: Present: supple, normal ROM - Respiratory Respiratory effort: normal Respiratory: bilateral: CTA - Cardiovascular Heart Sounds: Present: S1 & S2. Absent: rub, click - Extremities Extremities: pulses symmetrical, No edema Peripheral Pulses: within normal limits - Abdominal General gastrointestinal: Present: soft, non-tender, non-distended, normal bowel sounds - Integumentary Integumentary: Present: clear, warm, dry - Musculoskeletal Musculoskeletal: gait normal, strength equal bilaterally - Psychiatric Psychiatric: appropriate mood/affect, intact judgment & insight - Neurologic Neurologic: CNII-XII intact, moves all extremities Plan Activity: advance as tolerated Weight Bearing Status: Weight Bear as Tolerated Diet: renal Special Instructions: restrict fluid intake to (1.2L daily ), record daily BP diary Follow up with: BRENDA PARADA MD [Primary Care Provider] - 3-5 Days Prescriptions: Aspirin [Aspirin BABY CHEW TAB] 81 mg PO QDAY #30 tab.chew
[2019-02-27 15:12] VITALS: BP 138/62
== END 2019-02-27 15:20 | disposition home or self-care (01) | DRG 640 ==
LOC: ED 00:40 → 4A 03:22
PROVIDERS: ADMIT Internal Medicine Geriatric Medicine; ATTEND Internal Medicine
PROC: 5A1D70Z Performance of Urinary Filtration, Intermittent, Less than 6 Hours Per Day (ICD-10-PCS; principal; 2019-02-26)
PROC: 5A1D70Z Performance of Urinary Filtration, Intermittent, Less than 6 Hours Per Day (ICD-10-PCS; 2019-02-27)
DX: E87.70 Fluid overload, unspecified (principal); N18.6 End stage renal disease; I16.1 Hypertensive emergency; I12.0 Hypertensive chronic kidney disease with stage 5 chronic kidney disease or end stage renal disease; Z99.2 Dependence on renal dialysis; Z91.15 Patient's noncompliance with renal dialysis; F17.210 Nicotine dependence, cigarettes, uncomplicated; Z79.899 Other long term (current) drug therapy
CPT/HCPCS: 36415; 71045; 80048; 80074; 85025; 85610; 85730; 93005; 93010; G0378; J0360; J1644; Q0162

== ENCOUNTER 2020-06-14 13:47 | Inpatient (IN) | payer MEDICAID ==
--- NOTE | 2020-06-14 14:12 | Event Note ---
ED Screening Note Date of service: 06/14/20 Time: 14:10 ED Screening Note: 24-year-old male presents emergency department chief complaint of shortness of breath that started last night. Has past medical history of hypertension and chronic kidney disease. Denies any pain. He is on supplemental oxygen by EMS. This initial assessment/diagnostic orders/clinical plan/treatment(s) is/are subject to change based on patients health status, clinical progression and re- assessment by fellow clinical providers in the ED. Further treatment and workup at subsequent clinical providers discretion. Patient/guardian urged not to elope from the ED as their condition may be serious if not clinically assessed and managed. Initial orders include: CBC, CMP, chest x-ray
--- NOTE | 2020-06-14 14:44 | XRay Report ---
CHEST 2 VIEWS INDICATION / CLINICAL INFORMATION: cough, SOB. COMPARISON: One view of the chest from 02/26/2019. FINDINGS: SUPPORT DEVICES: None. HEART / MEDIASTINUM: Stable. LUNGS / PLEURA: There are bibasilar opacities, most notable along the right lower lobe. No significan t pleural effusion. No pneumothorax. ADDITIONAL FINDINGS: No significant additional findings. IMPRESSION: Suspected bibasilar pneumonia. Continued radiographic follow-up to resolution is recommended. Signer Name: Darshan Freeman MD Signed: 06/14/2020 2:39 PM Workstation Name: [id number]
[2020-06-14 14:54] LABS: Basophils # (Auto) 0.1 K/mm3 (0.0-0.1); Basophils % (Auto) 0.6 % (0.0-1.8); Eosinophils # (Auto) 0.2 K/mm3 (0.0-0.4); Eosinophils % (Auto) 2.7 % (0.0-4.3); Hemoglobin 9.5 gm/dl (11.8-15.2); Lymphocytes # (Auto) 0.9 K/mm3 (1.2-5.4); Lymphocytes % (Auto) 10.3 % (13.4-35.0); Mean Corpuscular HGB Conc 32 % (32-34); Mean Corpuscular Volume 92 fl (84-94); Monocytes # (Auto) 0.6 K/mm3 (0.0-0.8); Monocytes % (Auto) 6.2 % (0.0-7.3); Platelet Count 305 K/mm3 (140-440); Red Blood Count 3.28 M/mm3 (3.65-5.03); Red Cell Distribution Width 17.8 % (13.2-15.2)
[2020-06-14 15:09] LABS: Albumin 2.9 g/dL (3.9-5); Calcium 7.3 mg/dL (8.4-10.2)
[2020-06-14] MEDS ORDERED: AZITHROMYCIN/NS 500 MG/250 ML 500 MG/250 ML BAG IV ONE (19:04)
[2020-06-14] MEDS ORDERED: SODIUM CHLORIDE 0.9% 500 ML 500 ML IV ONE (19:04)
[2020-06-14] MEDS ORDERED: cefTRIAXone/NS 2 GM/100 ML 2 GM/100 ML BAG IV ONE (19:04)
[2020-06-14] MEDS ORDERED: dexAMETHasone 20 MG/5 ML VIAL IV ONE (19:06)
--- NOTE | 2020-06-14 19:33 | Emergency Department Report ---
ED Shortness of Breath HPI - General Chief Complaint: Dyspnea/Respdistress Stated Complaint: LEANN Time Seen by Provider: 06/14/20 18:58 Source: patient Mode of arrival: Wheelchair Limitations: No Limitations - History of Present Illness Initial Comments: Patient is a 24-year-old F Bahamian male with a past medical history of end- stage renal disease hypertension who goes to dialysis on Monday in [facility] is presenting with shortness of breath for the past 2 to 3 days. Patient's had a cough body aches. States he is more short of breath with exertion. O2 sat dropped into the mid 80s with exertion here in the emergency department. Patient has not had vaccination for COVID-19. He denies nausea vomiting diarrhea at this time. - Related Data Home Medications Medication Instructions Recorded Confirmed Last Taken Hydralazine HCl 50 mg PO BID 02/26/19 02/26/19 Unknown cloNIDine HCL [Catapres] 0.3 mg PO BID 02/26/19 02/26/19 Unknown Previous Rx's Medication Instructions Recorded Last Taken Type carvediloL [Coreg] 25 mg PO BID #60 tablet 09/10/14 01/11/16 Rx Ondansetron [Zofran ODT TAB] 4 mg PO Q8HR #20 tab.rapdis 01/11/16 Unknown Rx Pantoprazole [Protonix TAB] 40 mg PO QDAY #30 tablet 01/11/16 Unknown Rx NIFEdipine XL [Procardia Xl] 120 mg PO QDAY #30 tablet 01/18/16 Unknown Rx Aspirin [Aspirin BABY CHEW TAB] 81 mg PO QDAY #30 tab.chew 02/27/19 Unknown Rx Allergies Allergy/AdvReac Type Severity Reaction Status Date / Time No Known Allergies Allergy Unverified 06/30/13 16:18 ED Review of Systems ROS: Stated complaint: LEANN Other details as noted in HPI Comment: All other systems reviewed and negative ED Past Medical Hx - Past Medical History Previous Medical History?: Yes Hx Hypertension: Yes Hx Congestive Heart Failure: No Hx Diabetes: No Hx Renal Disease: Yes (HD M,W,F Dr. Randall) Hx Asthma: No Hx COPD: No Hx HIV: No - Surgical History Additional Surgical History: Dialysis access - Social History Smoking Status: Unknown if ever smoked Substance Use Type: None - Medications Home Medications: Home Medications Medication Instructions Recorded Confirmed Last Taken Type carvediloL [Coreg] 25 mg PO BID #60 tablet 09/10/14 02/26/19 01/11/16 Rx Ondansetron [Zofran ODT TAB] 4 mg PO Q8HR #20 tab.rapdis 01/11/16 02/26/19 Unknown Rx Pantoprazole [Protonix TAB] 40 mg PO QDAY #30 tablet 01/11/16 02/26/19 Unknown Rx NIFEdipine XL [Procardia Xl] 120 mg PO QDAY #30 tablet 01/18/16 02/26/19 Unknown Rx Hydralazine HCl 50 mg PO BID 02/26/19 02/26/19 Unknown History cloNIDine HCL [Catapres] 0.3 mg PO BID 02/26/19 02/26/19 Unknown History Aspirin [Aspirin BABY CHEW TAB] 81 mg PO QDAY #30 tab.chew 02/27/19 Unknown Rx ED Physical Exam - General Limitations: No Limitations General appearance: alert, in no apparent distress - Head Head exam: Present: atraumatic, normocephalic - Eye Eye exam: Present: normal appearance, PERRL, EOMI - ENT ENT exam: Present: mucous membranes moist - Neck Neck exam: Present: normal inspection - Respiratory Respiratory exam: Present: normal lung sounds bilaterally. Absent: respiratory distress, wheezes, rales, rhonchi - Cardiovascular Cardiovascular Exam: Present: regular rate, normal rhythm, normal heart sounds. Absent: systolic murmur, diastolic murmur, rubs, gallop - GI/Abdominal GI/Abdominal exam: Present: soft, normal bowel sounds. Absent: distended, tenderness, guarding - Rectal Rectal exam: Present: deferred - Extremities Exam Extremities exam: Present: normal inspection - Back Exam Back exam: Present: normal inspection - Neurological Exam Neurological exam: Present: alert, oriented X3 - Psychiatric Psychiatric exam: Present: normal affect, normal mood - Skin Skin exam: Present: warm, dry, intact, normal color. Absent: rash ED Course Vital Signs 06/14/20 06/14/20 06/14/20 14:11 17:44 18:12 Temperature 98.4 F 98 F Pulse Rate 106 H 105 H 108 H Respiratory 22 18 26 H Rate Blood Pressure 204/128 192/108 [Right] O2 Sat by Pulse 98 97 86 Oximetry 06/14/20 18:38 Temperature Pulse Rate Respiratory Rate Blood Pressure [Right] O2 Sat by Pulse 98 Oximetry ED Medical Decision Making - Lab Data Result diagrams: 06/14/20 14:29 06/14/20 14:29 Lab Results 06/14/20 06/14/20 Range/Units 14:29 14:29 WBC 9.0 (4.5-11.0) K/mm3 RBC 3.28 L (3.65-5.03) M/mm3 Hgb 9.5 L (11.8-15.2) gm/dl Hct 30.0 L (35.5-45.6) % MCV 92 (84-94) fl MCH 29 (28-32) pg MCHC 32 (32-34) % RDW 17.8 H (13.2-15.2) % Plt Count 305 (140-440) K/mm3 Lymph % (Auto) 10.3 L (13.4-35.0) % Dickson % (Auto) 6.2 (0.0-7.3) % Eos % (Auto) 2.7 (0.0-4.3) % Baso % (Auto) 0.6 (0.0-1.8) % Lymph # (Auto) 0.9 L (1.2-5.4) K/mm3 Dickson # (Auto) 0.6 (0.0-0.8) K/mm3 Eos # (Auto) 0.2 (0.0-0.4) K/mm3 Baso # (Auto) 0.1 (0.0-0.1) K/mm3 Seg Neutrophils % 80.2 H (40.0-70.0) % Seg Neutrophils # 7.2 (1.8-7.7) K/mm3 Sodium 137 (137-145) mmol/L Potassium 4.8 (3.6-5.0) mmol/L Chloride 100.6 (98-107) mmol/L Carbon Dioxide 21 L (22-30) mmol/L Anion Gap 20 mmol/L BUN 57 H (9-20) mg/dL Creatinine 14.7 H (0.8-1.3) mg/dL Estimated GFR 5 ml/min BUN/Creatinine Ratio 4 % Glucose 86 (75-100) mg/dL Calcium 7.3 L (8.4-10.2) mg/dL Total Bilirubin 0.30 (0.1-1.2) mg/dL AST 29 (5-40) units/L ALT 58 H (7-56) units/L Alkaline Phosphatase 55 (35-129) units/L Total Protein 5.3 L (6.3-8.2) g/dL Albumin 2.9 L (3.9-5) g/dL Albumin/Globulin Ratio 1.2 % - Radiology Data [facility] [address] [place] [address] XRay Report Signed Patient: ANY CARLSON MR#: [id number] : 1995 Acct:[id number] Age/Sex: 24 / M ADM Date: 06/14/20 Loc: ED Attending Dr: Ordering Physician: RHINA ANNE Date of Service: 06/14/20 Procedure(s): XR chest routine 2V Accession Number(s): [id number] cc: RHINA ANNE Fluoro Time In Minutes: CHEST 2 VIEWS INDICATION / CLINICAL INFORMATION: cough, SOB. COMPARISON: One view of the chest from 02/26/2019. FINDINGS: SUPPORT DEVICES: None. HEART / MEDIASTINUM: Stable. LUNGS / PLEURA: There are bibasilar opacities, most notable along the right lower lobe. No significant pleural effusion. No pneumothorax. ADDITIONAL FINDINGS: No significant additional findings. IMPRESSION: Suspected bibasilar pneumonia. Continued radiographic follow-up to resolution is recommended. Signer Name: Darshan Freeman MD Signed: 06/14/2020 2:39 PM Workstation Name: [id number] Transcribed By: MN - Medical Decision Making Patient requiring oxygen to maintain O2 sat in acceptable range. Patient to be admitted to the hospital for treatment of his pneumonia. We will check the patient for COVID-19 in the morning. Critical Care Time: Yes (30) Critical care attestation.: If time is entered above; I have spent that time in minutes in the direct care of this critically ill patient, excluding procedure time. ED Disposition Clinical Impression: Pulmonary infiltrates on CXR, Pneumonia, Suspected COVID-19 virus infection, Hypoxia, Chronic kidney disease, End-stage renal disease needing dialysis Disposition: OP ADMIT IP TO THIS HOSP Is pt being admited?: Yes Does the pt Need Aspirin: No Condition: Stable Instructions: Bacterial Pneumonia (ED) Time of Disposition: 19:34
[2020-06-14 20:22] LABS: C-Reactive Protein 0.4 mg/dL (0.00-1.30)
[2020-06-14] MEDS ORDERED: ONDANSETRON 4 MG/2 ML INJ IV ONE ×2 (20:24→21:24)
[2020-06-14] MEDS ORDERED: IPRATROPIUM 0.02% NEBU 2.5 ML IH ONE (20:25)
[2020-06-14] MEDS ORDERED: ALBUTEROL 2.5 MG/3 ML NEBU IH ONE (20:25)
[2020-06-14] MEDS ORDERED: HYDROmorphone 1 MG/1 ML INJ IV PRN (21:01)
[2020-06-14] MEDS ORDERED: METOCLOPRAMIDE 10 MG/2 ML INJ IV PRN (21:01)
[2020-06-14] MEDS ORDERED: ACETAMINOPHEN 325 MG TAB PO PRN (21:01)
[2020-06-14] MEDS ORDERED: oxyCODONE /ACETAMINOPHEN 5-325MG TAB PO PRN (21:01)
[2020-06-14] MEDS ORDERED: ONDANSETRON 4 MG/2 ML INJ IV PRN (21:01)
--- NOTE | 2020-06-14 21:11 | History and Physical Report ---
History of Present Illness Date of examination: 06/14/20 Date of admission: 06/14/20 19:34 Chief complaint: SOB for 3 days History of present illness: 24-year-old male with a past medical history of end-stage renal disease hypertension who goes to dialysis on Monday in [facility] is presenting with shortness of breath for the past 2 to 3 days. Patient's had a cough body aches. States he is more short of breath with exertion. O2 sat dropped into the mid 80s with exertion here in the emergency department. Patient has not had vaccination for COVID-19. Has N/V.Exposure to covid present. In ED Cxr was positive for bilaterla pneumonis - Past Medical History Previous Medical History?: Yes --Hypertension: Yes --Renal Disease: Yes (HD M,W,F Dr. Randall) - Surgical History Additional Surgical History: Dialysis access - Social History Smoking Status: Unknown if ever smoked Substance Use Type: None Family History Htn - Medications Home Medications: Home Medications Medication Instructions Recorded Confirmed Last Taken Type carvediloL [Coreg] 25 mg PO BID #60 tablet 09/10/14 02/26/19 01/11/16 Rx Ondansetron [Zofran ODT TAB] 4 mg PO Q8HR #20 tab.rapdis 01/11/16 02/26/19 Unknown Rx Pantoprazole [Protonix TAB] 40 mg PO QDAY #30 tablet 01/11/16 02/26/19 Unknown Rx NIFEdipine XL [Procardia Xl] 120 mg PO QDAY #30 tablet 01/18/16 02/26/19 Unknown Rx Hydralazine HCl 50 mg PO BID 02/26/19 02/26/19 Unknown History cloNIDine HCL [Catapres] 0.3 mg PO BID 02/26/19 02/26/19 Unknown History Aspirin [Aspirin BABY CHEW TAB] 81 mg PO QDAY #30 tab.chew 02/27/19 Unknown Rx Review of Systems ROS: Stated complaint: LEANN Other details as noted in HPI Comment: All other systems reviewed and negative Medications and Allergies Allergies Allergy/AdvReac Type Severity Reaction Status Date / Time No Known Allergies Allergy Verified 06/14/20 23:31 Home Medications Medication Instructions Recorded Confirmed Last Taken Type carvediloL [Coreg] 25 mg PO BID #60 tablet 0706/14/20 01/11/16 Rx cloNIDine HCL [Catapres] 0.3 mg PO BID 02/26/19 06/14/20 Unknown History NIFEdipine XL [Procardia Xl] 60 mg PO BID 06/14/20 06/14/20 Unknown History Exam - Constitutional Vitals: Temp Pulse Resp BP Pulse Ox 97.9 F 107 H 22 199/128 97 06/14/20 19:15 06/14/20 20:38 06/14/20 20:38 06/14/20 20:12 06/14/20 20:39 General appearance: Present: no acute distress, well-nourished - EENT Eyes: Present: PERRL ENT: hearing intact, clear oral mucosa - Neck Neck: Present: supple, normal ROM - Respiratory Respiratory effort: normal Respiratory: bilateral: CTA, rales - Cardiovascular Heart rate: 78 Rhythm: regular Heart Sounds: Present: S1 & S2. Absent: rub, click - Extremities Extremities: no ischemia, pulses intact, pulses symmetrical, No edema Peripheral Pulses: within normal limits - Abdominal General gastrointestinal: Present: soft, non-tender, non-distended, normal bowel sounds Male genitourinary: Present: normal - Rectal Rectal Exam: deferred - Integumentary Integumentary: Present: clear, warm, dry - Musculoskeletal Musculoskeletal: gait normal, strength equal bilaterally - Psychiatric Psychiatric: appropriate mood/affect, intact judgment & insight - Neurologic Neurologic: CNII-XII intact, moves all extremities - Allied Health Allied health notes reviewed: nursing, case management Results - Labs CBC & Chem 7: 06/15/20 07:19 06/14/20 14:29 Labs: Laboratory Last Values WBC 9.0 K/mm3 (4.5-11.0) 06/14/20 14:29 RBC 3.28 M/mm3 (3.65-5.03) L 06/14/20 14:29 Hgb 9.5 gm/dl (11.8-15.2) L 06/14/20 14:29 Hct 30.0 % (35.5-45.6) L 06/14/20 14:29 MCV 92 fl (84-94) 06/14/20 14:29 MCH 29 pg (28-32) 06/14/20 14:29 MCHC 32 % (32-34) 06/14/20 14:29 RDW 17.8 % (13.2-15.2) H 06/14/20 14:29 Plt Count 305 K/mm3 (140-440) 06/14/20 14:29 Lymph % (Auto) 10.3 % (13.4-35.0) L 06/14/20 14:29 [place] % (Auto) 6.2 % (0.0-7.3) 06/14/20 14: Eos % (Auto) 2.7 % (0.0-4.3) 06/14/20 14: Baso % (Auto) 0.6 % (0.0-1.8) 06/14/20 14: Lymph # (Auto) 0.9 K/mm3 (1.2-5.4) L 06/14/20 14: [place] # (Auto) 0.6 K/mm3 (0.0-0.8) 06/14/20 14: Eos # (Auto) 0.2 K/mm3 (0.0-0.4) 06/14/20 14: Baso # (Auto) 0.1 K/mm3 (0.0-0.1) 06/14/20 14: Seg Neutrophils % 80.2 % (40.0-70.0) H 06/14/20 14: Seg Neutrophils # 7.2 K/mm3 (1.8-7.7) 06/14/20 14:29 D-Dimer 144.95 ng/mlDDU (0-234) 06/14/20 19:10 Sodium 137 mmol/L (137-145) 06/14/20 14:29 Potassium 4.8 mmol/L (3.6-5.0) 06/14/20 14: Chloride 100.6 mmol/L (98-107) 06/14/20 14:29 Carbon Dioxide 21 mmol/L (22-30) L 06/14/20 14:29 Anion Gap 20 mmol/L 06/14/20 14:29 BUN 57 mg/dL (9-20) H 06/14/20 14:29 Creatinine 14.7 mg/dL (0.8-1.3) H 06/14/20 14:29 Estimated GFR 5 ml/min 06/14/20 14:29 BUN/Creatinine Ratio 4 % 06/14/20 14:29 Glucose 86 mg/dL (75-100) 06/14/20 14:29 Lactic Acid 1.10 mmol/L (0.7-2.0) 06/14/20 19:10 Calcium 7.3 mg/dL (8.4-10.2) L 06/14/20 14:29 Ferritin 199.2 ng/mL (30.0-300.0) 06/14/20 19:10 Total Bilirubin 0.30 mg/dL (0.1-1.2) 06/14/20 14:29 AST 29 units/L (5-40) 06/14/20 14:29 ALT 58 units/L (7-56) H 06/14/20 14:29 Alkaline Phosphatase 55 units/L (35-129) 06/14/20 14:29 Lactate Dehydrogenase 294 units/L (91-180) H 06/14/20 19:10 C-Reactive Protein 0.40 mg/dL (0.00-1.30) 06/14/20 19:10 Total Protein 5.3 g/dL (6.3-8.2) L 06/14/20 14:29 Albumin 2.9 g/dL (3.9-5) L 06/14/20 14:29 Albumin/Globulin Ratio 1.2 % 06/14/20 14:29 Short CBC 06/14/20 06/15/20 Range/Units 14:29 07:19 WBC 9.0 12.0 H (4.5-11.0) K/mm3 Hgb 9.5 L 10.0 L (11.8-15.2) gm/dl Hct 30.0 L 32.4 L (35.5-45.6) % Plt Count 305 381 (140-440) K/mm3 BMP 06/14/20 14:29 Sodium 137 Potassium 4.8 Chloride 100.6 Carbon Dioxide 21 L BUN 57 H Creatinine 14.7 H Glucose 86 Calcium 7.3 L Liver Function 06/14/20 Range/Units 14:29 Total Bilirubin 0.30 (0.1-1.2) mg/dL AST 29 (5-40) units/L ALT 58 H (7-56) units/L Alkaline Phosphatase 55 (35-129) units/L Albumin 2.9 L (3.9-5) g/dL Microbiology: Microbiology 06/14/20 19:10 Peripheral/Venous Blood Culture - Preliminary Culture in Progress 06/14/20 19:10 Peripheral/Venous Blood Culture - Preliminary Culture in Progress - Imaging and Cardiology Imaging and Cardiology: CXR IMPRESSION: Suspected bibasilar pneumonia. Continued radiographic follow-up to resolution is recommended. Assessment and Plan Advance Directives: Yes (Full code) VTE prophylaxis?: Chemical Plan of care discussed with patient/family: Yes - Patient Problems (1) Acute respiratory failure with hypoxia Current Visit: Yes Status: Acute Plan to address problem: Hupoxic in O2 supplements as needed Bipap if necessary High flow O2 (2) Bilateral pneumonia Current Visit: Yes Status: Acute Plan to address problem: Treat as CAP for now (3) End-stage renal disease needing dialysis Current Visit: Yes Status: Chronic (4) Suspected COVID-19 virus infection Current Visit: Yes Status: Acute Plan to address problem: Clemens virus pcr in AM IV Decadron initiated (5) HTN (hypertension) Current Visit: Yes Status: Chronic Qualifiers: Hypertension type: essential hypertension Qualified Code(s): I10 - Essential (primary) hypertension Plan to address problem: Cont antihypertensives Adjust medicines (6) DVT prophylaxis Current Visit: Yes Status: Acute Plan to address problem: on Heparin and GI prophylaxis
[2020-06-14] MEDS ORDERED: IPRATROPIUM/ALBUTEROL SULFATE 3 ML AMPUL.NEB IH PRN (21:22)
[2020-06-14] MEDS ORDERED: ALBUTEROL 2.5 MG/3 ML NEBU IH PRN (21:35)
[2020-06-14] MEDS ORDERED: CLONIDINE HCL 0.3 MG PO SCH (22:00)
[2020-06-14] MEDS: carvediloL 25 MG TAB PO SCH (22:20)
[2020-06-14] MEDS: FAMOTIDINE 20 MG TAB PO SCH (22:21)
[2020-06-14] MEDS: cloNIDine 0.1 MG TAB PO SCH (22:21)
[2020-06-14] MEDS: NIFEdipine XL 60 MG TAB PO SCH (23:26)
[2020-06-15] MEDS ORDERED: hydrALAZINE 20 MG/1 ML INJ IV PRN (05:34)
[2020-06-15] MEDS ORDERED: ALBUTEROL 2.5 MG/3 ML NEBU IH PRN (07:18)
[2020-06-15 07:51] LABS: Hematocrit 32.4 % (35.5-45.6); Mean Corpuscular HGB Conc 31 % (32-34); Mean Corpuscular Volume 90 fl (84-94); Platelet Count 381 K/mm3 (140-440); Red Cell Distribution Width 17.6 % (13.2-15.2)
[2020-06-15] MEDS ORDERED: IPRATROPIUM/ALBUTEROL SULFATE 3 ML AMPUL.NEB IH SCH (08:00)
[2020-06-15 08:10] LABS: Albumin 3.2 g/dL (3.9-5); Calcium 7.8 mg/dL (8.4-10.2)
[2020-06-15] MEDS ORDERED: SODIUM CHLORIDE 0.9% 100 ML IV PRN (08:43)
[2020-06-15 09:50] LABS: Total Cells Counted 100
[2020-06-15 09:51] LABS: Anisocytosis 1+; Platelet Estimate Consistent w Auto
[2020-06-15] MEDS ORDERED: dexAMETHasone 4 MG/ML VIAL IV SCH (10:00)
--- NOTE | 2020-06-15 11:45 | Consultation ---
History of Present Illness - Reason for Consult Consult date: 06/15/20 end stage renal disease, hyperkalemia Requesting physician: CARMITA MCMANUS - History of Present Illness This is a 24 yo M with past medical history of Hypertension, ESRD on HD on MWF schedule in [facility], who presents with worsening shortness of breath, cough and diffuse body aches for the last 2-3 days prior to admission. In ER patient was noted to be hypoxic with O2 sat down to 80s. CXR showed evidence of bibasilar pneumonia. COVID19 test is pending. Lab showed elevated K > 6.3 along with BUN/Cr at 70/15.5, renal consult is requested for management of ESRD/HD. Pt reports compliance with all his treatments. Past History Past Medical History: hypertension, renal failure Past Surgical History: Other (AVF ) Social history: denies: smoking, alcohol abuse, prescription drug abuse, IV drug use Medications and Allergies Allergies Allergy/AdvReac Type Severity Reaction Status Date / Time No Known Allergies Allergy Verified 06/14/20 23:31 Home Medications Medication Instructions Recorded Confirmed Last Taken Type carvediloL [Coreg] 25 mg PO BID #60 tablet 09/10/14 06/14/20 01/11/16 Rx cloNIDine HCL [Catapres] 0.3 mg PO BID 02/26/19 06/14/20 Unknown History NIFEdipine XL [Procardia Xl] 60 mg PO BID 06/14/20 06/14/20 Unknown History Active Meds: Active Medications Acetaminophen (Acetaminophen 325 Mg Tab) 650 mg PO Q4H PRN PRN Reason: Pain MILD(1-3)/Fever >100.5/TAN Albuterol (Albuterol 2.5 Mg/3 Ml Nebu) 2.5 mg IH Q4HRT PRN PRN Reason: Wheezing Albuterol/Ipratropium (Ipratropium/Albuterol Sulfate 3 Ml Ampul.Neb) 1 ampul IH TIDRT [facility] Carvedilol (Carvedilol 25 Mg Tab) 25 mg PO BID [facility] Last Admin: 06/14/20 22:20 Dose: 25 mg Documented by: Clonidine HCl (Clonidine 0.1 Mg Tab) 0.3 mg PO BID [facility] Last Admin: 06/14/20 22:21 Dose: 0.3 mg Documented by: Dexamethasone (Dexamethasone 4 Mg/Ml Vial) 8 mg IV Q24HR [facility] Stop: 06/23/20 10:01 Famotidine (Famotidine 20 Mg Tab) 20 mg PO DAILY@2200 [facility] Last Admin: 06/14/20 22:21 Dose: 20 mg Documented by: Hydralazine HCl (Hydralazine 20 Mg/1 Ml Inj) 10 mg IV Q4HR PRN PRN Reason: Blood Pressure Last Admin: 06/15/20 05:47 Dose: 10 mg Documented by: Hydromorphone HCl (Hydromorphone 1 Mg/1 Ml Inj) 0.5 mg IV Q3H PRN PRN Reason: Pain , Severe (7-10) Last Admin: 06/14/20 21:45 Dose: 0.5 mg Documented by: Azithromycin (Zithromax/Ns) 500 mg in 250 mls @ 250 mls/hr IV Q24H [facility] Ceftriaxone Sodium (Rocephin/Ns 1 Gm/50 Ml) 1 gm in 50 mls @ 100 mls/hr IV Q24H [facility]; Protocol Sodium Chloride (Nacl 0.9%) 100 mls @ 999 mls/hr IV GONZALES PRN PRN Reason: Hypotension Metoclopramide HCl (Metoclopramide 10 Mg/2 Ml Inj) 10 mg IV Q6H PRN PRN Reason: Nausea And Vomiting Nifedipine (Nifedipine Xl 60 Mg Tab) 60 mg PO BID [facility] Last Admin: 06/14/20 23:26 Dose: 60 mg Documented by: Ondansetron HCl (Ondansetron 4 Mg/2 Ml Inj) 4 mg IV Q3H PRN PRN Reason: Nausea And Vomiting Oxycodone/Acetaminophen (Oxycodone /Acetaminophen 5-325mg Tab) 1 tab PO Q6H PRN PRN Reason: Pain, Moderate (4-6) Sodium Chloride (Sodium Chloride 0.9% 10 Ml Flush Syringe) 10 ml IV BID [facility] Last Admin: 06/14/20 22:10 Dose: 10 ml Documented by: Sodium Chloride (Sodium Chloride 0.9% 10 Ml Flush Syringe) 10 ml IV PRN PRN PRN Reason: LINE FLUSH Review of Systems All systems: negative Constitutional: weakness, malaise Cardiovascular: shortness of breath, dyspnea on exertion Exam - Vital Signs Vital signs: Vital Signs Temp Pulse Resp BP Pulse Ox 98.4 F 106 H 22 204/128 98 06/14/20 14:11 06/14/20 14:11 06/14/20 14:11 06/14/20 14:11 06/14/20 14:11 - Physical Exam Narrative exam: exam deferred due to PPE preservation. Results - Lab Results 06/15/20 07:19 06/15/20 07:19 Most recent lab results Calcium 7.8 mg/dL (8.4-10.2) L 06/15/20 07:19 Assessment and Plan - Patient Problems (1) Hyperkalemia Current Visit: Yes Status: Acute Plan to address problem: HD arrange for correction of hyperkalemia and solute clearance. cont 2g K renal diet (2) Bilateral pneumonia Current Visit: Yes Status: Acute Plan to address problem: rule out COVID 19, currently initiated on ABX treatment with ceftriaxone, a zithromycin (3) End stage renal disease Current Visit: Yes Status: Acute Plan to address problem: cont HD on MWF schedule (4) Hypertensive chronic kidney disease with stage 5 chronic kidney disease or end stage renal disease Current Visit: Yes Status: Acute Plan to address problem: resume home BP meds, will target UF 3L as tolerated for further volume/BP control (5) Suspected COVID-19 virus infection Current Visit: Yes Status: Acute Plan to address problem: pending COVID 19 PCR result
[2020-06-15 11:59] LABS: Hepatitis B Surface Antigen Non-Reactive (Negative); Hepatitis C Virus Antibody Non-Reactive (NonReactive)
[2020-06-15] MEDS: carvediloL 25 MG TAB PO SCH ×2 (15:03→21:05)
[2020-06-15] MEDS: cloNIDine 0.1 MG TAB PO SCH ×2 (15:03→21:05)
[2020-06-15] MEDS: IPRATROPIUM/ALBUTEROL SULFATE 3 ML AMPUL.NEB IH SCH ×2 (15:06→19:35)
[2020-06-15] MEDS: NIFEdipine XL 60 MG TAB PO SCH ×2 (15:17→21:05)
[2020-06-15] MEDS ORDERED: AZITHROMYCIN/NS 500 MG/250 ML 500 MG/250 ML BAG IV SCH (18:00)
[2020-06-15] MEDS: cefTRIAXone/NS 1 GM/50 ML 1 GM/50 ML BAG IV SCH (18:53)
[2020-06-15] MEDS: FAMOTIDINE 20 MG TAB PO SCH (21:05)
--- NOTE | 2020-06-15 23:30 | Progress Note ---
Assessment and Plan - Patient Problems (1) Acute respiratory failure with hypoxia Current Visit: Yes Status: Acute Plan to address problem: Hupoxic in O2 supplements as needed Bipap if necessary High flow O2 (2) Bilateral pneumonia Current Visit: Yes Status: Acute Plan to address problem: Treat as CAP for now (3) End-stage renal disease needing dialysis Current Visit: Yes Status: Chronic Plan to address problem: COnt HD per schedule (4) Suspected COVID-19 virus infection Current Visit: Yes Status: Acute Plan to address problem: Clemens virus pcr negative IV Decadron discontinued (5) HTN (hypertension) Current Visit: Yes Status: Chronic Qualifiers: Hypertension type: essential hypertension Qualified Code(s): I10 - Essential (primary) hypertension Plan to address problem: Cont antihypertensives Adjust medicines (6) DVT prophylaxis Current Visit: Yes Status: Acute Plan to address problem: on Heparin and GI prophylaxis Subjective Date of service: 06/15/20 Principal diagnosis: Acute respiratory failure with hypoxia Interval history: 24-year-old male with a past medical history of end-stage renal disease hypertension who goes to dialysis on Monday in [facility] is presenting with shortness of breath for the past 2 to 3 days. Patient's had a cough body aches. States he is more short of breath with exertion. O2 sat dropped into the mid 80s with exertion here in the emergency department. Patient has not had vaccination for COVID-19. Has N/V.Exposure to covid present. In ED Cxr was positive for bilaterla pneumonis 06/15/2020 Patient is Covid negative Patient is more comfortable and on 2 L nasal cannula oxygen Patient doing much better than yesterday Patient was on BiPAP yesterday which which is also Objective - Constitutional Vitals: Vital Signs - 12hr 06/15/20 06/15/20 06/15/20 11:15 11:30 11:45 Temperature Pulse Rate 90 83 69 Pulse Rate [ Bilateral Throughout] Respiratory Rate Respiratory Rate [Bilateral Throughout] Blood Pressure 192/113 171/90 133/75 O2 Sat by Pulse Oximetry 06/15/20 06/15/20 06/15/20 12:00 12:15 12:30 Temperature Pulse Rate 92 H 92 H 94 H Pulse Rate [ Bilateral Throughout] Respiratory Rate Respiratory Rate [Bilateral Throughout] Blood Pressure 182/90 191/101 195/96 O2 Sat by Pulse Oximetry 06/15/20 06/15/20 06/15/20 12:51 13:10 15:03 Temperature 97.9 F Pulse Rate 98 H 81 98 H Pulse Rate [ Bilateral Throughout] Respiratory 18 Rate Respiratory Rate [Bilateral Throughout] Blood Pressure 170/93 200/84 170/93 O2 Sat by Pulse Oximetry 06/15/20 06/15/20 06/15/20 15:06 17:46 19:35 Temperature 97.5 F L Pulse Rate 91 H Pulse Rate [ 98 H Bilateral Throughout] Respiratory 20 Rate Respiratory 18 Rate [Bilateral Throughout] Blood Pressure 164/104 O2 Sat by Pulse 95 97 Oximetry 06/15/20 19:36 Temperature Pulse Rate Pulse Rate [ 92 H Bilateral Throughout] Respiratory Rate Respiratory 20 Rate [Bilateral Throughout] Blood Pressure O2 Sat by Pulse Oximetry General appearance: Present: no acute distress, well-nourished - EENT Eyes: PERRL, EOM intact ENT: hearing intact, clear oral mucosa Ears: bilateral: normal - Neck Neck: supple, normal ROM - Respiratory Respiratory effort: normal Respiratory: bilateral: CTA, wheezing - Breasts Breasts: normal - Cardiovascular Heart rate: 78 Rhythm: regular Heart Sounds: Present: S1 & S2. Absent: gallop, rub Extremities: pulses intact, No edema, normal color, Full ROM - Gastrointestinal General gastrointestinal: Present: soft, non-tender, non-distended, normal bowel sounds - Genitourinary Male genitourinary: normal - Integumentary Integumentary: clear, warm, dry - Musculoskeletal Musculoskeletal: 1, strength equal bilaterally - Neurologic Neurologic: moves all extremities - Psychiatric Psychiatric: memory intact, appropriate mood/affect, intact judgment & insight - Labs CBC & Chem 7: 06/15/20 07:19 06/15/20 07:19 Labs: Abnormal lab results 06/15/20 06/15/20 Range/Units 07:19 07:19 WBC 12.0 H (4.5-11.0) K/mm3 RBC 3.60 L (3.65-5.03) M/mm3 Hgb 10.0 L (11.8-15.2) gm/dl Hct 32.4 L (35.5-45.6) % MCHC 31 L (32-34) % RDW 17.6 H (13.2-15.2) % Seg Neuts % (Manual) 96.0 H (40.0-70.0) % Lymphocytes % (Manual) 4.0 L (13.4-35.0) % Seg Neutrophils # Man 11.5 H (1.8-7.7) K/mm3 Lymphocytes # (Manual) 0.5 L (1.2-5.4) K/mm3 Sodium 135 L (137-145) mmol/L Potassium 6.3 H* D (3.6-5.0) mmol/L Carbon Dioxide 20 L (22-30) mmol/L BUN 70 H (9-20) mg/dL Creatinine 15.5 H (0.8-1.3) mg/dL Glucose 128 H (75-100) mg/dL Calcium 7.8 L (8.4-10.2) mg/dL ALT 75 H (7-56) units/L Total Protein 6.0 L (6.3-8.2) g/dL Albumin 3.2 L (3.9-5) g/dL
[2020-06-16] MEDS: IPRATROPIUM/ALBUTEROL SULFATE 3 ML AMPUL.NEB IH SCH ×3 (07:59→20:44)
[2020-06-16] MEDS: cloNIDine 0.1 MG TAB PO SCH ×2 (10:12→21:02)
[2020-06-16] MEDS: carvediloL 25 MG TAB PO SCH ×2 (10:12→21:02)
[2020-06-16] MEDS: NIFEdipine XL 60 MG TAB PO SCH ×2 (10:12→21:02)
--- NOTE | 2020-06-16 11:05 | Progress Note ---
Assessment and Plan - Patient Problems (1) Hyperkalemia Current Visit: Yes Status: Acute Plan to address problem: S/p HD with 2k bath to correct hyperkalemia cont 2g K renal diet. Recheck K, if normalized stable for discharge from renal stand point (2) Bilateral pneumonia Current Visit: Yes Status: Acute Plan to address problem: COVID 19 ruled out, currently initiated on ABX treatment with ceftriaxone, azithromycin (3) End stage renal disease Current Visit: Yes Status: Acute Plan to address problem: cont HD on MWF schedule (4) Hypertensive chronic kidney disease with stage 5 chronic kidney disease or end stage renal disease Current Visit: Yes Status: Acute Plan to address problem: resume home BP meds, will target UF 3L as tolerated for further volume/BP control Subjective Date of service: 06/16/20 Principal diagnosis: Acute respiratory failure with hypoxia Interval history: Pt awake, alert, in no acute distress Objective - Vital Signs Vital signs: Vital Signs - 12hr 06/15/20 06/16/20 23:20 05:48 Temperature 97.4 F L Pulse Rate 89 82 Respiratory 16 Rate Blood Pressure 128/65 O2 Sat by Pulse 96 99 Oximetry - General Appearance General appearance: well-developed, well-nourished, appears stated age EENT: ATNC, PERRL, mucous membranes moist Neck: no JVD Respiratory: Present: Clear to Ascultation Cardiology: regular, S1S2 Gastrointestinal: normoactive bowel sounds Integumentary: no rash, other (no edema ) Neurologic: no focal deficit, alert and oriented x3, strength 5/5, CN 3-12 intact - Lab 06/15/20 07:19 06/15/20 07:19 Most recent lab results Calcium 7.8 mg/dL (8.4-10.2) L 06/15/20 07:19 Medications & Allergies - Medications Allergies/Adverse Reactions: Allergies No Known Allergies Allergy (Verified 06/14/20 23:31) Home Medications: Home Medications Medication Instructions Recorded Confirmed Last Taken Type carvediloL [Coreg] 25 mg PO BID #60 tablet 09/10/14 06/14/20 01/11/16 Rx cloNIDine HCL [Catapres] 0.3 mg PO BID 02/26/19 06/14/20 Unknown History NIFEdipine XL [Procardia Xl] 60 mg PO BID 06/14/20 06/14/20 Unknown History Active Medications: Generic Name Dose Route Start Last Admin Trade Name Freq PRN Reason Stop Dose Admin Acetaminophen 650 mg 06/14/20 21:01 Acetaminophen 325 Mg Tab PO Q4H PRN Pain MILD(1-3)/Fever >100.5/TAN Albuterol 2.5 mg 06/15/20 07:18 Albuterol 2.5 Mg/3 Ml Nebu IH Q4HRT PRN Wheezing Albuterol/Ipratropium 1 ampul 06/15/20 14:00 06/16/20 07:59 Ipratropium/Albuterol Sulfate 3 Ml Ampul.Neb IH 1 ampul TIDRT KING Administration Azithromycin 500 mg 06/16/20 18:00 Azithromycin 250 Mg Tab PO 06/18/20 18:01 QPM KING Carvedilol 25 mg 06/14/20 22:00 06/16/20 10:12 Carvedilol 25 Mg Tab PO 25 mg BID KING Administration Clonidine HCl 0.3 mg 06/14/20 22:00 06/16/20 10:12 Clonidine 0.1 Mg Tab PO 0.3 mg BID KING Administration Famotidine 20 mg 06/14/20 22:00 06/15/20 21:05 Famotidine 20 Mg Tab PO 20 mg DAILY@2200 KING Administration Hydralazine HCl 10 mg 06/15/20 05:34 06/15/20 05:47 Hydralazine 20 Mg/1 Ml Inj IV 10 mg Q4HR PRN Administration Blood Pressure Hydromorphone HCl 0.5 mg 06/14/20 21:01 06/14/20 21:45 Hydromorphone 1 Mg/1 Ml Inj IV 0.5 mg Q3H PRN Administration Pain , Severe (7-10) Ceftriaxone Sodium 1 gm in 50 mls @ 100 mls/hr 06/15/20 18:00 06/15/20 18:53 Rocephin/Ns 1 Gm/50 Ml IV 06/20/20 20:00 100 mls/hr Q24H KING Administration Protocol Sodium Chloride 100 mls @ 999 mls/hr 06/15/20 08:43 Nacl 0.9% IV GONZALES PRN Hypotension Metoclopramide HCl 10 mg 06/14/20 21:01 Metoclopramide 10 Mg/2 Ml Inj IV Q6H PRN Nausea And Vomiting Nifedipine 60 mg 06/14/20 22:00 06/16/20 10:12 Nifedipine Xl 60 Mg Tab PO 60 mg BID KING Administration Ondansetron HCl 4 mg 06/14/20 21:01 Ondansetron 4 Mg/2 Ml Inj IV Q3H PRN Nausea And Vomiting Oxycodone/Acetaminophen 1 tab 06/14/20 21:01 Oxycodone /Acetaminophen 5-325mg Tab PO Q6H PRN Pain, Moderate (4-6) Sodium Chloride 10 ml 06/14/20 22:00 06/16/20 10:13 Sodium Chloride 0.9% 10 Ml Flush Syringe IV 10 ml BID KING Administration Sodium Chloride 10 ml 06/14/20 21:01 Sodium Chloride 0.9% 10 Ml Flush Syringe IV PRN PRN LINE FLUSH
--- NOTE | 2020-06-16 14:59 | Progress Note ---
Assessment and Plan (1) Acute respiratory failure with hypoxia Current Visit: Yes Status: Acute Plan to address problem: Hupoxic in O2 supplements as needed Bipap if necessary High flow O2 (2) Bilateral pneumonia Current Visit: Yes Status: Acute Plan to address problem: Treat as CAP for now (3) End-stage renal disease needing dialysis Current Visit: Yes Status: Chronic Plan to address problem: COnt HD per schedule (4) Suspected COVID-19 virus infection Current Visit: Yes Status: Acute Plan to address problem: Clemens virus pcr negative IV Decadron discontinued (5) HTN (hypertension) Current Visit: Yes Status: Chronic Qualifiers: Hypertension type: essential hypertension Qualified Code(s): I10 - Essential (primary) hypertension Plan to address problem: Cont antihypertensives Adjust medicines (6) DVT prophylaxis Current Visit: Yes Status: Acute Plan to address problem: on Heparin and GI prophylaxis Interval history: 24-year-old male with a past medical history of end-stage renal disease hypertension who goes to dialysis on Monday in [facility] is presenting with shortness of breath for the past 2 to 3 days. Patient's had a cough body aches. States he is more short of breath with exertion. O2 sat dropped into the mid 80s with exertion here in the emergency department. Patient has not had vaccination for COVID-19. Has N/V.Exposure to c ovid present. In ED Cxr was positive for bilaterla pneumonis 06/15/2020 Patient is Covid negative Patient is more comfortable and on 2 L nasal cannula oxygen Patient doing much better than yesterday Patient was on BiPAP yesterday which which is also 06/16/20: Patient remains on 2 L nasal cannula, wean off oxygen as tolerated. Assess pre and post ambulatory O2 saturation. If clinically stable and O2 sat normal in room air possible discharge tomorrow after hemodialysis. Subjective Date of service: 06/16/20 Principal diagnosis: Acute respiratory failure with hypoxia Interval history: Patient seen and examined. Medical records and medication list reviewed. No acute event overnight noted by the RN. Patient states that he is feeling a lot better. Patient is tolerating diet. Discussed plan of care at bedside with patient. Objective - Exam Narrative Exam: GENERAL: well-developed and well-nourished -N[place]ian male lying on bed appeared to be in no discomfort. HEENT: Normocephalic. Atraumatic. No conjunctival congestion or icterus. Patient has moist mucous membranes. NECK: Supple. Trachea midline. CHEST/LUNGS: breathing nonlabored. No wheezes crackles or rhonchi. HEART/CARDIOVASCULAR: Regular in rate and rhythm. S1 and S2 positive. ABDOMEN: Abdomen is soft, nontender. Patient has normal bowel sounds. SKIN: There is no rash. Warm and dry. NEURO: No focal motor deficit. Follows command. MUSCULOSKELETAL: No joint effusion or tenderness. EXTRIMITY: No edema, no cyanosis or clubbing. PSYCH: Cooperative. - Constitutional Vitals: Vital Signs - 12hr 06/16/20 06/16/20 06/16/20 05:48 10:00 13:53 Temperature 97.4 F L Pulse Rate 82 Pulse Rate [ 84 Bilateral Throughout] Respiratory 16 Rate Respiratory 18 Rate [Bilateral Throughout] Blood Pressure 128/65 O2 Sat by Pulse 99 100 Oximetry - Labs CBC & Chem 7: 06/15/20 07:19 06/15/20 07:19
[2020-06-16 15:34] LABS: Calcium 6.6 mg/dL (8.4-10.2)
[2020-06-16] MEDS: cefTRIAXone/NS 1 GM/50 ML 1 GM/50 ML BAG IV SCH (17:46)
[2020-06-16] MEDS ORDERED: AZITHROMYCIN 250 MG TAB PO SCH (18:00)
[2020-06-16] MEDS: FAMOTIDINE 20 MG TAB PO SCH (21:02)
[2020-06-17] MEDS: IPRATROPIUM/ALBUTEROL SULFATE 3 ML AMPUL.NEB IH SCH ×2 (08:28→15:01)
[2020-06-17] MEDS: cloNIDine 0.1 MG TAB PO SCH (09:30)
[2020-06-17] MEDS: carvediloL 25 MG TAB PO SCH (09:38)
[2020-06-17] MEDS: NIFEdipine XL 60 MG TAB PO SCH (09:38)
--- NOTE | 2020-06-17 10:34 | Progress Note ---
Assessment and Plan - Patient Problems (1) Hyperkalemia Current Visit: Yes Status: Acute Plan to address problem: K corrected with HD (2) Bilateral pneumonia Current Visit: Yes Status: Acute Plan to address problem: COVID 19 ruled out, currently initiated on ABX treatment with ceftriaxone, azithromycin (3) End stage renal disease Current Visit: Yes Status: Acute Plan to address problem: cont HD on MWF schedule. Pt is stable for discharge after HD today (4) Hypertensive chronic kidney disease with stage 5 chronic kidney disease or end stage renal disease Current Visit: Yes Status: Acute Plan to address problem: resume home BP meds, will target UF 3L as tolerated for further volume/BP control Subjective Date of service: 06/17/20 Principal diagnosis: Acute respiratory failure with hypoxia Interval history: Pt awake, alert, in no acute distress Objective - Vital Signs Vital signs: Vital Signs - 12hr 06/16/20 06/17/20 06/17/20 22:54 05:38 08:00 Temperature 98.4 F 98.2 F Pulse Rate 89 87 Pulse Rate [ 90 Bilateral Throughout] Respiratory 20 18 Rate Respiratory 18 Rate [Bilateral Throughout] Blood Pressure 131/72 143/70 O2 Sat by Pulse 97 99 Oximetry 06/17/20 06/17/20 06/17/20 08:28 09:30 09:38 Temperature Pulse Rate 94 H 94 H Pulse Rate [ Bilateral Throughout] Respiratory Rate Respiratory Rate [Bilateral Throughout] Blood Pressure 117/89 117/89 O2 Sat by Pulse 99 Oximetry - General Appearance General appearance: well-developed, well-nourished, appears stated age EENT: ATNC, PERRL, mucous membranes moist Neck: no JVD Respiratory: Present: Clear to Ascultation Cardiology: regular, S1S2 Gastrointestinal: normoactive bowel sounds Integumentary: no rash, other (no edema ) Neurologic: no focal deficit, alert and oriented x3, strength 5/5, CN 3-12 intact Psychiatric: mood/affect appropriate, cooperative - Lab 06/15/20 07:19 06/16/20 14:56 Most recent lab results Calcium 6.6 mg/dL (8.4-10.2) L D 06/16/20 14:56 Medications & Allergies - Medications Allergies/Adverse Reactions: Allergies No Known Allergies Allergy (Verified 06/14/20 23:31) Home Medications: Home Medications Medication Instructions Recorded Confirmed Last Taken Type carvediloL [Coreg] 25 mg PO BID #60 tablet 09/10/14 06/14/20 01/11/16 Rx cloNIDine HCL [Catapres] 0.3 mg PO BID 02/26/19 06/14/20 Unknown History NIFEdipine XL [Procardia Xl] 60 mg PO BID 06/14/20 06/14/20 Unknown History Active Medications: Generic Name Dose Route Start Last Admin Trade Name Freq PRN Reason Stop Dose Admin Acetaminophen 650 mg 06/14/20 21:01 Acetaminophen 325 Mg Tab PO Q4H PRN Pain MILD(1-3)/Fever >100.5/TAN Albuterol 2.5 mg 06/15/20 07:18 Albuterol 2.5 Mg/3 Ml Nebu IH Q4HRT PRN Wheezing Albuterol/Ipratropium 1 ampul 06/15/20 14:00 06/17/20 08:28 Ipratropium/Albuterol Sulfate 3 Ml Ampul.Neb IH 1 ampul TIDRT KING Administration Azithromycin 500 mg 06/16/20 18:00 06/16/20 17:46 Azithromycin 250 Mg Tab PO 06/18/20 18:01 500 mg QPM KING Administration Carvedilol 25 mg 06/14/20 22:00 06/17/20 09:38 Carvedilol 25 Mg Tab PO 25 mg BID KING Administration Clonidine HCl 0.3 mg 06/14/20 22:00 06/17/20 09:30 Clonidine 0.1 Mg Tab PO Not Given BID KING Famotidine 20 mg 06/14/20 22:00 06/16/20 21:02 Famotidine 20 Mg Tab PO 20 mg DAILY@2200 KING Administration Hydralazine HCl 10 mg 06/15/20 05:34 06/15/20 05:47 Hydralazine 20 Mg/1 Ml Inj IV 10 mg Q4HR PRN Administration Blood Pressure Hydromorphone HCl 0.5 mg 06/14/20 21:01 06/14/20 21:45 Hydromorphone 1 Mg/1 Ml Inj IV 0.5 mg Q3H PRN Administration Pain , Severe (7-10) Ceftriaxone Sodium 1 gm in 50 mls @ 100 mls/hr 06/15/20 18:00 06/16/20 17:46 Rocephin/Ns 1 Gm/50 Ml IV 06/20/20 20:00 100 mls/hr Q24H KING Administration Protocol Sodium Chloride 100 mls @ 999 mls/hr 06/15/20 08:43 Nacl 0.9% IV GONZALES PRN Hypotension Metoclopramide HCl 10 mg 06/14/20 21:01 Metoclopramide 10 Mg/2 Ml Inj IV Q6H PRN Nausea And Vomiting Nifedipine 60 mg 06/14/20 22:00 06/17/20 09:38 Nifedipine Xl 60 Mg Tab PO 60 mg BID KING Administration Ondansetron HCl 4 mg 06/14/20 21:01 Ondansetron 4 Mg/2 Ml Inj IV Q3H PRN Nausea And Vomiting Oxycodone/Acetaminophen 1 tab 06/14/20 21:01 Oxycodone /Acetaminophen 5-325mg Tab PO Q6H PRN Pain, Moderate (4-6) Sodium Chloride 10 ml 06/14/20 22:00 06/17/20 09:44 Sodium Chloride 0.9% 10 Ml Flush Syringe IV 10 ml BID KING Administration Sodium Chloride 10 ml 06/14/20 21:01 Sodium Chloride 0.9% 10 Ml Flush Syringe IV PRN PRN LINE FLUSH
--- NOTE | 2020-06-17 13:22 | Discharge Summary ---
Providers - Providers Date of Admission: 06/15/20 10:42 Date of discharge: 06/17/20 Attending physician: SHANDA MAGUIRE 06/14/20 21:01 Consult to Physician [CONS] Routine Comment: Consulting Provider: SUSIE CUMMINGS Physician Instructions: Reason For Exam: esrd Primary care physician: SHOVEL ENGINEER Hospitalization Condition: Stable Hospital course: This is a 24-year-old male with a past medical history of end- stage renal disease hypertension who goes to dialysis on Monday in [facility] is presenting with shortness of breath for the past 2 to 3 days. Patient's had a cough body aches. States he is more short of breath with exertion. O2 sat dropped into the mid 80s with exertion here in the emergency department. Patient has not had vaccination for COVID-19. Has N/V and Exposure to covid present.. In ED Cxr was positive for bilateral pneumonia. BP was 204 x 128 on admission. Patient admitted to the hospital with COVID-19 protocol. Daily clinical course: 06/15/2020 Patient is Covid negative Patient is more comfortable and on 2 L nasal cannula oxygen Patient doing much better than yesterday Patient was on BiPAP yesterday which which is also Potassium level 6.3 today -hyperkalemia protocol as needed and follow BMP after hemodialysis 06/16/20: Patient remains on 2 L nasal cannula, wean off oxygen as tolerated. Assess pre and post ambulatory O2 saturation. If clinically stable and O2 sat normal in room air possible discharge tomorrow after hemodialysis. Potassium level normal. 06/17/2020: Clinically stable. Had hemodialysis today. Assess for home O2 and he was saturating greater than 90% in room air both in ambulation and walking. His blood pressure stabilized. Potassium and sodium level stable. Patient will be discharged home with oral antibiotics to treat for community-acquired pneumonia. Discharge plan and management was discussed with the patient and he verbalized understanding. Disposition: [id number] HOME UNDER [facility] Final Discharge Diagnosis (Prints w/discharge instructions): Acute hypoxic respiratory failure, bilateral pneumonia community-acquired, end-stage renal disease on dialysis, hypertension accelerated/uncontrolled, SIRS, mild hyponatremia, hyperkalemia, anemia of chronic disease, morbid obesity, mild malnutrition. Time spent for discharge: 34 minutes Core Measure Documentation - Palliative Care Palliative Care/ Comfort Measures: Not Applicable - Core Measures Any of the following diagnoses?: none Exam - Physical Exam Narrative exam: GENERAL: well-developed and well-nourished -Serbian male lying on bed appeared to be in no discomfort. HEENT: Normocephalic. Atraumatic. No conjunctival congestion or icterus. Patient has moist mucous membranes. NECK: Supple. Trachea midline. CHEST/LUNGS: breathing nonlabored. No wheezes crackles or rhonchi. HEART/CARDIOVASCULAR: Regular in rate and rhythm. S1 and S2 positive. ABDOMEN: Abdomen is soft, nontender. Patient has normal bowel sounds. SKIN: There is no rash. Warm and dry. NEURO: No focal motor deficit. Follows command. MUSCULOSKELETAL: No joint effusion or tenderness. EXTRIMITY: No edema, no cyanosis or clubbing. PSYCH: Cooperative. - Constitutional Vitals: Temp Pulse Resp BP Pulse Ox 98.2 F 92 H 18 135/71 94 06/17/20 10:27 06/17/20 10:27 06/17/20 10:27 06/17/20 10:27 06/17/20 10:27 Plan Activity: advance as tolerated Weight Bearing Status: Weight Bear as Tolerated Diet: renal Special Instructions: restrict fluid intake to (1.2L daily ) Follow up with: PRIMARY CARE, [Primary Care Provider] - 7 Days CARMITA MCMANUS MD [Staff Physician] - 7 Days Prescriptions: Albuterol Mdi (or & Nicu Only) [ProAir HFA Inhaler] 2 puff IH QID PRN #8.5 gram PRN Reason: Shortness Of Breath Azithromycin [Zithromax TAB] 500 mg PO QPM #4 tablet
[2020-06-17 20:45] VITALS: BP 157/68
== END 2020-06-17 16:05 | disposition home or self-care (01) | DRG 193 ==
LOC: ED 13:47 → 3A 19:34 → OBSVTOIN 06-15 10:42 → 3A 06-15 14:33
PROVIDERS: ADMIT Internal Medicine; ATTEND Internal Medicine
PROC: 5A1D70Z Performance of Urinary Filtration, Intermittent, Less than 6 Hours Per Day (ICD-10-PCS; principal; 2020-06-15)
PROC: 5A1D70Z Performance of Urinary Filtration, Intermittent, Less than 6 Hours Per Day (ICD-10-PCS; 2020-06-17)
DX: J18.9 Pneumonia, unspecified organism (principal); N18.6 End stage renal disease; J96.01 Acute respiratory failure with hypoxia; Z20.822 Contact with and (suspected) exposure to COVID-19; I12.0 Hypertensive chronic kidney disease with stage 5 chronic kidney disease or end stage renal disease; Z99.2 Dependence on renal dialysis; Z79.899 Other long term (current) drug therapy; Z82.49 Family history of ischemic heart disease and other diseases of the circulatory system; E87.5 Hyperkalemia; E87.1 Hypo-osmolality and hyponatremia; R65.10 Systemic inflammatory response syndrome (SIRS) of non-infectious origin without acute organ dysfunction; D63.8 Anemia in other chronic diseases classified elsewhere; E66.01 Morbid (severe) obesity due to excess calories; Z68.35 Body mass index [BMI] 35.0-35.9, adult; E44.1 Mild protein-calorie malnutrition
CPT/HCPCS: 36415; 71046; 80048; 80053; 80074; 82140; 82728; 83036; 83615; 84145; 85007; 85025; 85379; 86140; 87040; 94640; 94644; 96361; 96365; 96366; 96367; 96368; 96375; 96376; G0378; J0360; J0456; J0696; J1100; J1170; J2405; J7040; U0003

== ENCOUNTER 2020-07-13 16:37 | Emergency (ER) | payer MEDICAID ==
[2020-07-13] MEDS ORDERED: HYDROmorphone 1 MG/1 ML INJ IV ONE (16:41)
[2020-07-13] MEDS ORDERED: ONDANSETRON 4 MG/2 ML INJ IV ONE (16:41)
--- NOTE | 2020-07-13 17:05 | Emergency Department Report ---
ED Abdominal Pain HPI - General Chief Complaint: Abdominal Pain Stated Complaint: LOW ABD PAIN/BACK PAIN PUI?: No Time Seen by Provider: 07/13/20 16:40 Source: patient, EMS, old records reviewed Mode of arrival: Stretcher Limitations: No Limitations - History of Present Illness Initial Comments: Chief complaint: Abdominal pain HPI: This is a 24-year-old male with history of end-stage renal disease on hemodialysis Monday, hypertension who presents with abdominal pain. While initiating hemodialysis at clinic, patient had a sudden onset of bilateral lower abdominal pain radiating to the back. Sharp 10 out of 10 in nature. Positive vomiting. Last bowel movement occurred around noon. He denies diarrhea. He has had recurrent similar pain. Has been evaluated in the emergency department. However he has not had a concrete diagnosis. January 11, 2016: CT abdomen pelvis without contrast impression prominent wall thickening and adjacent inflammation in the jejunum with dilatation suggestive jejunitis Patient's AV fistula has dialysis access catheters in place. Patient would not sit still for the catheters to be removed. Patient was also evaluated at hospital in [facility] for similar symptoms. MD Complaint: abdominal pain -: Sudden, This afternoon (Just 5 minutes into hemodialysis session.) Location: LLQ, RLQ Radiation: back Severity scale (0 -10): 10 Quality: sharp Consistency: constant Improves With: nothing Worsens With: nothing Associated Symptoms: nausea, vomiting - Related Data Home Medications Medication Instructions Recorded Confirmed Last Taken cloNIDine HCL [Catapres] 0.3 mg PO BID 02/26/19 06/14/20 Unknown NIFEdipine XL [Procardia Xl] 60 mg PO BID 06/14/20 06/14/20 Unknown Previous Rx's Medication Instructions Recorded Last Taken Type carvediloL [Coreg] 25 mg PO BID #60 tablet 09/10/14 01/11/16 Rx Albuterol Mdi (or & Nicu Only) 2 puff IH QID PRN #8.5 gram 06/17/20 Unknown Rx [ProAir HFA Inhaler] Azithromycin [Zithromax TAB] 500 mg PO QPM #4 tablet 06/17/20 Unknown Rx Allergies Allergy/AdvReac Type Severity Reaction Status Date / Time No Known Allergies Allergy Verified 06/14/20 23:31 ED Review of Systems ROS: Stated complaint: LOW ABD PAIN/BACK PAIN Other details as noted in HPI ED Past Medical Hx - Past Medical History Hx Hypertension: Yes Hx Congestive Heart Failure: No Hx Diabetes: No Hx Renal Disease: Yes (HD M,W,F) Hx Asthma: No Hx COPD: No Hx HIV: No - Surgical History Additional Surgical History: Dialysis access - Social History Smoking Status: Current Some Day Smoker Substance Use Type: Alcohol - Medications Home Medications: Home Medications Medication Instructions Recorded Confirmed Last Taken Type carvediloL [Coreg] 25 mg PO BID #60 tablet 09/10/14 06/14/20 01/11/16 Rx cloNIDine HCL [Catapres] 0.3 mg PO BID 02/26/19 06/14/20 Unknown History NIFEdipine XL [Procardia Xl] 60 mg PO BID 06/14/20 06/14/20 Unknown History Albuterol Mdi (or & Nicu Only) 2 puff IH QID PRN #8.5 gram 06/17/20 Unknown Rx [ProAir HFA Inhaler] Azithromycin [Zithromax TAB] 500 mg PO QPM #4 tablet 06/17/20 Unknown Rx ED Physical Exam - General Limitations: No Limitations General appearance: alert, in no apparent distress, other (Patient is nontoxic-appearing he appears uncomfortable) - Head Head exam: Present: atraumatic, normocephalic - Eye Eye exam: Present: normal appearance - ENT ENT exam: Present: mucous membranes moist - Neck Neck exam: Present: normal inspection, full ROM - Respiratory Respiratory exam: Present: normal lung sounds bilaterally. Absent: respiratory distress, wheezes, rales, rhonchi - Cardiovascular Cardiovascular Exam: Present: regular rate, normal rhythm, normal heart sounds. Absent: systolic murmur, diastolic murmur, rubs, gallop - GI/Abdominal GI/Abdominal exam: Present: soft, normal bowel sounds. Absent: distended, tenderness, guarding, rebound - Rectal Rectal exam: Present: deferred - Extremities Exam Extremities exam: Present: other (Left bicep: Bandage in place with inserted dialysis catheters) - Neurological Exam Neurological exam: Present: alert, oriented X3 - Psychiatric Psychiatric exam: Present: normal affect, normal mood - Skin Skin exam: Present: warm, dry, intact, normal color. Absent: rash ED Course Vital Signs 07/13/20 07/13/20 07/13/20 16:39 16:40 16:45 Temperature 98.5 F Pulse Rate 109 H 106 H 104 H Respiratory 13 17 19 Rate Blood Pressure 146/75 146/75 O2 Sat by Pulse 91 95 93 Oximetry 07/13/20 07/13/20 16:49 16:53 Temperature Pulse Rate Respiratory 17 16 Rate Blood Pressure O2 Sat by Pulse Oximetry ED Medical Decision Making - Lab Data Result diagrams: 07/13/20 17:24 07/13/20 17:24 - Radiology Data Radiology results: report reviewed Patient Name: ANY CARLSON Gender: Male Date of : 1995 Referring Provider: MARY DAVIS Organization: [facility] Accession Number: [id number] Requested Date: July 13, 2020 18:32 Report Status: Final Requested Procedure: 1 Procedure Description: CT abdomen pelvis wo con Modality: CT Findings Reporting MD: Lei Sheth Dictation Time: July 13, 2020 18:20 Youth Counselor: Not available Division Operations Manager Date: CT OF THE ABDOMEN AND PELVIS WITHOUT CONTRAST INDICATION / CLINICAL INFORMATION: Abdominal pain; hx of jejunitis. TECHNIQUE: All CT scans at this location are performed using CT dose reduction for [employer] by means of automated exposure control. COMPARISON: 01/11/16. FINDINGS: ABDOMEN: The liver, spleen, gallbladder, bile ducts, pancreas, adrenal glands and bowel are normal. The kidneys are small without acute abnormality. No adenopathy is present. There is loculated pleural effusion in the right major fissure similar to the prior exam. There is mosaic lung attenuation which is new or more prominent. PELVIS: The distal ureters and urinary bladder are normal. The prostate gland and seminal vesicles are unremarkable. A normal appendix is present and there is no evidence of diverticulitis. No abnormal mass or fluid collection is seen. I do not identify a hernia. No acute osseous abnormality is present. IMPRESSION: 1. No acute intra-abdominal disease is identified. 2. Loculated fluid in the right major fissure is similar to a prior study from 2016. 3. Mosaic lung attenuation is a nonspecific finding, most commonly related to reactive small airway disease. 4. Small kidneys. Signer Name: Lei Sheth MD Signed: 07/13/2020 6:20 PM Workstation Name: [employer] - Medical Decision Making This is a 24-year-old male with history of end-stage renal disease on hemodialysis, hypertension presents with recurrent abdominal pain for the past 5+ years CT abdomen pelvis in 2016 revealed jejunitis, differential diagnosis: Inflammatory bowel disease, irritable bowel syndrome, food intolerance, pancreatitis related to end-stage renal disease, celiac disease No evidence of acute inflammatory or obstructive intra-abdominal process process on CT scan today. Patient is currently pain-free with only 1 dose of medication. I asked nurse to contact housekeeper manager to have dialysis catheters removed from fistula. I strongly recommend evaluation by GI specialist. He is followed by PCP Dr. Leon. Also provided diet education. He will contact his dialysis clinic tomorrow for treatment appointment. No need for emergent dialysis at this time. Normal potassium, no evidence of significant acidosis. Critical care attestation.: If time is entered above; I have spent that time in minutes in the direct care of this critically ill patient, excluding procedure time. ED Disposition Clinical Impression: Irritable bowel syndrome, End-stage renal disease needing dialysis Disposition: DC-01 TO HOME OR SELFCARE Is pt being admited?: No Does the pt Need Aspirin: No Condition: Stable Instructions: Diet for Irritable Bowel Syndrome, Irritable Bowel Syndrome, Adult Referrals: BRENDA LEON MD [Staff Physician] - 3-5 Days JINA LEAVITT MD [Staff Physician] - 3-5 Days
[2020-07-13 17:43] LABS: Basophils # (Auto) 0.1 K/mm3 (0.0-0.1); Basophils % (Auto) 0.9 % (0.0-1.8); Eosinophils # (Auto) 0.2 K/mm3 (0.0-0.4); Eosinophils % (Auto) 1.9 % (0.0-4.3); Lymphocytes # (Auto) 0.6 K/mm3 (1.2-5.4); Lymphocytes % (Auto) 5.6 % (13.4-35.0); Mean Corpuscular HGB Conc 32 % (32-34); Mean Corpuscular Volume 89 fl (84-94); Monocytes # (Auto) 0.5 K/mm3 (0.0-0.8); Monocytes % (Auto) 4.9 % (0.0-7.3); Platelet Count 307 K/mm3 (140-440); Red Cell Distribution Width 17.4 % (13.2-15.2)
[2020-07-13 18:02] LABS: Alanine Aminotransferase 18 units/L (7-56); Albumin 3.4 g/dL (3.9-5); Blood Urea Nitrogen 57 mg/dL (9-20); Calcium 7.5 mg/dL (8.4-10.2); Hemolysis Index 1
[2020-07-13 18:03] LABS: BUN/Creatinine Ratio 4; Bilirubin,Direct < 0.2 mg/dL (0-0.2)
--- NOTE | 2020-07-13 19:24 | Cat Scan Report ---
CT OF THE ABDOMEN AND PELVIS WITHOUT CONTRAST INDICATION / CLINICAL INFORMATION: Abdominal pain; hx of jejunitis. TECHNIQUE: All CT scans at this location are performed using CT dose reduction for [employer] by means of automated exposure control. COMPARISON: 01/11/16. FINDINGS: ABDOMEN: The liver, spleen, gallbladder, bile ducts, pancreas, adrenal glands and bowel are normal. T he kidneys are small without acute abnormality. No adenopathy is present. There is loculated pleural effusion in the right major fissure similar to the prior exam. There is mosaic lung attenuation which is new or more prominent. PELVIS: The distal ureters and urinary bladder are normal. The prostate gland and seminal vesicles ar e unremarkable. A normal appendix is present and there is no evidence of diverticulitis. No abnormal mass or fluid collection is seen. I do not identify a hernia. No acute osseous abnormality is present . IMPRESSION: 1. No acute intra-abdominal disease is identified. 2. Loculated fluid in the right major fissure is similar to a prior study from 2016. 3. Mosaic lung attenuation is a nonspecific finding, most commonly related to reactive small airway d isease. 4. Small kidneys. Signer Name: Lei Sheth MD Signed: 07/13/2020 7:20 PM Workstation Name: [id number]
[2020-07-13 22:06] VITALS: BP 138/86
== END 2020-07-13 22:07 | disposition home or self-care (01) ==
LOC: ED 16:37
DX: K58.9 Irritable bowel syndrome, unspecified (principal); I12.0 Hypertensive chronic kidney disease with stage 5 chronic kidney disease or end stage renal disease; N18.6 End stage renal disease; Z99.2 Dependence on renal dialysis; F17.200 Nicotine dependence, unspecified, uncomplicated; Z79.899 Other long term (current) drug therapy
CPT/HCPCS: 36415; 74176; 80048; 80076; 83690; 85025; 96374; 96375; 99284; J1170; J2405

== ENCOUNTER 2020-07-15 13:41 | Observation (INO) | payer MEDICAID ==
--- NOTE | 2020-07-15 14:27 | Event Note ---
ED Screening Note Date of service: 07/15/20 Time: 14:26 ED Screening Note: 24-year-old -[place] male presents to the emergency room complaining of abrupt sharp abdominal pain to his lower abdomen. Patient states he was on the way to dialysis when this started. Patient was seen 2 days ago for the same complaint. Patient denies any penile discharge. He does state he makes a little urine. This initial assessment/diagnostic orders/clinical plan/treatment(s) is/are subject to change based on patients health status, clinical progression and re- assessment by fellow clinical providers in the ED. Further treatment and workup at subsequent clinical providers discretion. Patient/guardian urged not to elope from the ED as their condition may be serious if not clinically assessed and managed. Initial orders include:
[2020-07-15 14:40] LABS: Basophils # (Auto) 0.1 K/mm3 (0.0-0.1); Basophils % (Auto) 0.8 % (0.0-1.8); Eosinophils # (Auto) 0.1 K/mm3 (0.0-0.4); Eosinophils % (Auto) 1.9 % (0.0-4.3); Hematocrit 29.6 % (35.5-45.6); Hemoglobin 9.6 gm/dl (11.8-15.2); Lymphocytes # (Auto) 0.6 K/mm3 (1.2-5.4); Lymphocytes % (Auto) 7.4 % (13.4-35.0); Mean Corpuscular HGB Conc 33 % (32-34); Mean Corpuscular Volume 87 fl (84-94); Monocytes # (Auto) 0.4 K/mm3 (0.0-0.8); Monocytes % (Auto) 5.2 % (0.0-7.3); Platelet Count 284 K/mm3 (140-440); Red Cell Distribution Width 17.5 % (13.2-15.2)
[2020-07-15 14:50] LABS: Albumin 3.3 g/dL (3.9-5); Calcium 7.5 mg/dL (8.4-10.2)
--- NOTE | 2020-07-15 23:12 | Emergency Department Report ---
HPI - General Chief Complaint: Abdominal Pain Time Seen by Provider: 07/15/20 22:58 - HPI HPI: This is a 24-year-old male who presents to the emergency department with a complaint of lower abdominal pain that kept him from getting dialysis today. He was on the way to get dialysis at [facility] when he began having intermittent sharp lower abdominal pains. Upon arrival to the emergency department the patient says that he also began having some left-sided flank and/or rib pain and some shortness of breath. Currently at this time his pain is 5 out of 10 in intensity. No known aggravating or alleviating factors. He denies any fever, lower extremity swelling, cough, nausea, vomiting, back pain or diaphoresis. The patient says that he last got dialysis last Monday, which means he has gone about 6 days since getting dialysis. Patient was here 2 days ago with the same complaint of abdominal pain. He had blood work and a CT scan of the abdomen/pelvis that did not show any acute process. He has not taken anything for symptoms prior to presentation today. His drilling superintendent is Dr Neely. ED Past Medical Hx - Past Medical History Previous Medical History?: Yes Hx Hypertension: Yes Hx Congestive Heart Failure: No Hx Diabetes: No Hx Renal Disease: Yes (HD M,W,F) Hx Asthma: No Hx COPD: No Hx HIV: No - Surgical History Past Surgical History?: Yes Additional Surgical History: Dialysis access - Social History Smoking Status: Current Some Day Smoker Substance Use Type: Alcohol - Medications Home Medications: Home Medications Medication Instructions Recorded Confirmed Last Taken Type carvediloL [Coreg] 25 mg PO BID #60 tablet 09/10/14 06/14/20 01/11/16 Rx cloNIDine HCL [Catapres] 0.3 mg PO BID 02/26/19 06/14/20 Unknown History NIFEdipine XL [Procardia Xl] 60 mg PO BID 06/14/20 06/14/20 Unknown History Albuterol Mdi (or & Nicu Only) 2 puff IH QID PRN #8.5 gram 06/17/20 Unknown Rx [ProAir HFA Inhaler] Azithromycin [Zithromax TAB] 500 mg PO QPM #4 tablet 06/17/20 Unknown Rx ED Review of Systems ROS: Stated complaint: ABD/BACK PAIN Other details as noted in HPI Comment: All other systems reviewed and negative Constitutional: denies: chills, fever Eyes: denies: eye pain, vision change ENT: denies: ear pain, throat pain Respiratory: shortness of breath. denies: wheezing Cardiovascular: chest pain (left sided rib pain). denies: edema Gastrointestinal: abdominal pain. denies: vomiting Genitourinary: denies: dysuria, discharge Musculoskeletal: denies: back pain, arthralgia Skin: denies: rash, lesions Neurological: denies: headache, weakness Physical Exam - Physical Exam Vital Signs: Vital Signs 07/15/20 13:45 Temperature 98.3 F Pulse Rate 109 H Respiratory 20 Rate Blood Pressure 128/74 [Right] O2 Sat by Pulse 94 Oximetry Physical Exam: GENERAL: The patient is well-developed well-nourished. HENT: Normocephalic. Atraumatic. Patient has moist mucous membranes. EYES: Extraocular motions are intact. NECK: Supple. Trachea is midline. CHEST/LUNGS: Slightly coarse breath sounds. Mild tachypnea but no accessory muscle use. There is no respiratory distress noted. HEART/CARDIOVASCULAR: Regular. There is no tachycardia. There is no murmur. ABDOMEN: Abdomen is soft, nontender. Patient has normal bowel sounds. SKIN: Skin is warm and dry. NEURO: The patient is awake, alert, and oriented. The patient is cooperative. The patient has no focal neurologic deficits. Normal speech. MUSCULOSKELETAL: There is no tenderness or deformity. There is no limitation range of motion. ED Course Vital Signs 07/15/20 13:45 Temperature 98.3 F Pulse Rate 109 H Respiratory 20 Rate Blood Pressure 128/74 [Right] O2 Sat by Pulse 94 Oximetry - Consultations Consultation #1: 07/15/20 23:45 I spoke to the patient's drilling superintendent, Dr. Neely. She has recommended the patient be admitted to the hospitalist service and they will provide dialysis in the morning. ED Medical Decision Making - Lab Data Result diagrams: 07/15/20 14:13 07/15/20 14:13 Lab Results 07/15/20 07/15/20 Range/Units 14:13 14:13 WBC 7.6 (4.5-11.0) K/mm3 RBC 3.40 L (3.65-5.03) M/mm3 Hgb 9.6 L (11.8-15.2) gm/dl Hct 29.6 L (35.5-45.6) % MCV 87 (84-94) fl MCH 28 (28-32) pg MCHC 33 (32-34) % RDW 17.5 H (13.2-15.2) % Plt Count 284 (140-440) K/mm3 Lymph % (Auto) 7.4 L (13.4-35.0) % [place] % (Auto) 5.2 (0.0-7.3) % Eos % (Auto) 1.9 (0.0-4.3) % Baso % (Auto) 0.8 (0.0-1.8) % Lymph # (Auto) 0.6 L (1.2-5.4) K/mm3 [place] # (Auto) 0.4 (0.0-0.8) K/mm3 Eos # (Auto) 0.1 (0.0-0.4) K/mm3 Baso # (Auto) 0.1 (0.0-0.1) K/mm3 Seg Neutrophils % 84.7 H (40.0-70.0) % Seg Neutrophils # 6.5 (1.8-7.7) K/mm3 Sodium 138 (137-145) mmol/L Potassium 4.8 (3.6-5.0) mmol/L Chloride 99.9 (98-107) mmol/L Carbon Dioxide 17 L (22-30) mmol/L Anion Gap 26 mmol/L BUN 76 H (9-20) mg/dL Creatinine 19.0 H (0.8-1.3) mg/dL Estimated GFR 4 ml/min BUN/Creatinine Ratio 4 % Glucose 102 H (75-100) mg/dL Calcium 7.5 L (8.4-10.2) mg/dL Total Bilirubin 0.30 (0.1-1.2) mg/dL AST 15 (5-40) units/L ALT 16 (7-56) units/L Alkaline Phosphatase 55 (35-129) units/L Total Protein 6.2 L (6.3-8.2) g/dL Albumin 3.3 L (3.9-5) g/dL Albumin/Globulin Ratio 1.1 % - EKG Data -: EKG Interpreted by Wi EKG shows normal: sinus rhythm, axis, intervals, QRS complexes, ST-T waves (T wave inversions to the lateral leads) Rate: normal - EKG Data When compared to previous EKG there are: no significant change Interpretation: unchanged when compared t (02/26/19) - Radiology Data Radiology results: report reviewed CHEST AND ABDOMINAL SERIES HISTORY: Chest/abdominal pain. COMPARISON: 06/14/2020. Chest one view: Persistent moderate cardiomegaly. Loculated fluid remains at the right major fissure. No new infiltrate. Two-view abdomen: Gas is scattered throughout the abdomen in a nonobstructive fashion. Negative for free air or suspicious calcification. - Medical Decision Making This patient presents to the emergency department with a complaint of lower abdominal pain, left lateral chest/rib pain, and some shortness of breath. The abdomen is soft, nondistended and nontoxic in appearance. He had a CT scan of the abdomen and pelvis 2 days ago that did not show any acute process. Abdominal x-ray today shows nonspecific nonobstructive bowel gas and no free air. Chest x-ray does not show any pneumonia or pneumothorax. It was read by radiology as having a chronic area of loculated fluid at the right major fissure that was also seen on the previous CT scan. EKG did not have any morphology consistent with ST elevation myocardial infarction. The patient's labs are mostly unremarkable except for the renal insufficiency consistent with his end- stage renal disease on hemodialysis. Nephrology was contacted and consulted and recommended admission for dialysis in the morning. Patient was accepted for admission by the hospitalist, Dr. Rhodes. Critical Care Time: No Critical care attestation.: If time is entered above; I have spent that time in minutes in the direct care of this critically ill patient, excluding procedure time. ED Disposition Clinical Impression: ESRD needing dialysis, Missed dialysis, Atypical chest pain HTN (hypertension) Qualifiers: Hypertension type: renovascular hypertension Qualified Code(s): I15.0 - Renovascular hypertension Abdominal pain Qualifiers: Abdominal location: lower abdomen, unspecified Qualified Code(s): R10.30 - Lower abdominal pain, unspecified Disposition: OP ADMIT IP TO THIS HOSP Is pt being admited?: Yes Instructions: Hypertension (ED) Time of Disposition: 23:55 HEART Score - HEART Score History: Slightly suspicious EKG: Non-specific Age: < 45 Risk factors: 1-2 risk factors Troponin: < normal limit HEART Score: 2 - Critical Actions Critical Actions: 0-3 pts:0.9-1.7%risk of adverse cardiac event.Candidate for discharge
--- NOTE | 2020-07-15 23:36 | XRay Report ---
CHEST AND ABDOMINAL SERIES HISTORY: Chest/abdominal pain. COMPARISON: 06/14/2020. Chest one view: Persistent moderate cardiomegaly. Loculated fluid remains at the right major fissure. No new infiltrate. Two-view abdomen: Gas is scattered throughout the abdomen in a nonobstructive fashion. Negative for f ree air or suspicious calcification. Signer Name: Reginaldo Parry MD Signed: 07/15/2020 11:32 PM Workstation Name: [id number]
[2020-07-15] MEDS ORDERED: ASPIRIN 81 MG TAB CHEW PO ONE (23:48)
[2020-07-15] MEDS ORDERED: IPRATROPIUM/ALBUTEROL SULFATE 3 ML AMPUL.NEB IH ONE (23:49)
[2020-07-15] MEDS ORDERED: hydrALAZINE 20 MG/1 ML INJ IV ONE (23:53)
[2020-07-16] MEDS ORDERED: ACETAMINOPHEN 325 MG TAB PO PRN (00:07)
[2020-07-16] MEDS ORDERED: METOCLOPRAMIDE 10 MG/2 ML INJ IV PRN ×2 (00:07→00:15)
[2020-07-16] MEDS ORDERED: ALUM-MAG HYDROXIDE-SIMETHICONE 200-200-20MG/5ML ORAL LIQD 30 ML PO PRN (00:07)
[2020-07-16] MEDS ORDERED: MAGNESIUM HYDROXIDE (MOM) ORAL LIQD UDC PO PRN (00:07)
[2020-07-16] MEDS ORDERED: ONDANSETRON 4 MG/2 ML INJ IV PRN (00:07)
--- NOTE | 2020-07-16 00:10 | History and Physical Report ---
History of Present Illness Date of examination: 07/16/20 Date of admission: 07/16/20 Chief complaint: Missed HD ESRD Abdominal pain Atypical chest pain History of present illness: This is a 24-year-old male who presents to the emergency department with a complaint of lower abdominal pain that kept him from getting dialysis today. He was on the way to get dialysis at [facility] when he began having intermittent sharp lower abdominal pains. Upon arrival to the emergency department the patient says that he also began having some left-sided flank and/or rib pain and some shortness of breath. Currently at this time his pain is 5 out of 10 in intensity. No known aggravating or alleviating factors. He denies any fever, lower extremity swelling, cough, nausea, vomiting, back pain or diaphoresis. The patient says that he last got dialysis last Monday, which means he has gone about 6 days since getting dialysis. Patient was here 2 days ago with the same complaint of abdominal pain. He had blood work and a CT scan of the abdomen/pelvis that did not show any acute process. He has not taken anything for symptoms prior to presentation today. His co founder and chairman is ED work-up shows WBC 7.6 hemoglobin 9.6 platelets 284, sodium level 138, potassi um 4.8, creatinine 19.0, serum glucose 102, calcium level 7.5, protein level 6.2 Albumin 3.3. Checks x-ray of the chest and abdomen done which shows persistent moderate cardiomegaly and fluid at the right major fissures. Patient seen at bedside alert and oriented x3. Patient said he came with missed dialysis. He said he missed his dialysis because he was having abdominal pain radiating to his chest. Abdominal pain level 3/10 at the time of assessment. The patient medical record, his co founder and chairman recommended hemodialysis on admission. Creatinine 19.0. Patient also reported nausea vomiting that is worsening. Patient is on antiemetic will start hemodialysis this morning. I reviewed patient medical record, medication record, and vital signs. Patient with history of elevated blood pressures on blood pressure medication. His home medications resumed. Past History Past Medical History: ESRD, hypertension Past Surgical History: No surgical history Social history: lives with family, smoking Family history: hypertension, other (kidney disease requiring HD) Medications and Allergies Allergies Allergy/AdvReac Type Severity Reaction Status Date / Time No Known Allergies Allergy Verified 06/14/20 23:31 Home Medications Medication Instructions Recorded Confirmed Last Taken Type carvediloL [Coreg] 25 mg PO BID #60 tablet 09/10/14 06/14/20 01/11/16 Rx cloNIDine HCL [Catapres] 0.3 mg PO BID 02/26/19 06/14/20 Unknown History NIFEdipine XL [Procardia Xl] 60 mg PO BID 06/14/20 06/14/20 Unknown History Albuterol Mdi (or & Nicu Only) 2 puff IH QID PRN #8.5 gram 06/17/20 Unknown Rx [ProAir HFA Inhaler] Azithromycin [Zithromax TAB] 500 mg PO QPM #4 tablet 06/17/20 Unknown Rx Review of Systems Constitutional: weakness Ears, nose, mouth and throat: no epistaxis, no bleeding gums Cardiovascular: chest pain Respiratory: no wheezing Gastrointestinal: no melena Genitourinary Male: other (kidney diesase) Rectal: no hemorrhoids Musculoskeletal: no muscle weakness Integumentary: no rash, no pruritis Neurological: no convulsions Psychiatric: no suicidal ideation, no hallucinations Hematologic/Lymphatic: no easy bruising, no easy bleeding Allergic/Immunologic: no urticaria Exam - Constitutional Vitals: Temp Pulse Resp BP Pulse Ox 97.7 F 84 21 161/101 96 07/15/20 23:15 07/15/20 23:46 07/15/20 23:46 07/15/20 23:46 07/15/20 23:15 General appearance: Present: mild distress, obese - EENT Eyes: Present: PERRL ENT: hearing intact, clear oral mucosa - Neck Neck: Present: supple, normal ROM - Respiratory Respiratory effort: normal Respiratory: bilateral: CTA - Cardiovascular Heart rate: 88 Heart Sounds: Present: S1 & S2. Absent: rub, click - Extremities Extremities: pulses symmetrical, No edema Peripheral Pulses: within normal limits - Abdominal General gastrointestinal: Present: soft, non-tender, non-distended, normal bowel sounds Male genitourinary: Present: normal - Integumentary Integumentary: Present: clear, warm, dry - Musculoskeletal Musculoskeletal: gait normal, strength equal bilaterally - Psychiatric Psychiatric: appropriate mood/affect, intact judgment & insight - Neurologic Neurologic: CNII-XII intact, moves all extremities - Allied Health Allied health notes reviewed: nursing, PT HEART Score - HEART Score EKG: Non-specific Age: < 45 Risk factors: 1-2 risk factors Troponin: < normal limit - Critical Actions Critical Actions: 0-3 pts:0.9-1.7%risk of adverse cardiac event.Candidate for discharge Results - Labs CBC & Chem 7: 07/15/20 14:13 07/15/20 14:13 Labs: Abnormal lab results 07/15/20 07/15/20 Range/Units 14:13 14:13 RBC 3.40 L (3.65-5.03) M/mm3 Hgb 9.6 L (11.8-15.2) gm/dl Hct 29.6 L (35.5-45.6) % RDW 17.5 H (13.2-15.2) % Lymph % (Auto) 7.4 L (13.4-35.0) % Lymph # (Auto) 0.6 L (1.2-5.4) K/mm3 Seg Neutrophils % 84.7 H (40.0-70.0) % Carbon Dioxide 17 L (22-30) mmol/L BUN 76 H (9-20) mg/dL Creatinine 19.0 H (0.8-1.3) mg/dL Glucose 102 H (75-100) mg/dL Calcium 7.5 L (8.4-10.2) mg/dL Total Protein 6.2 L (6.3-8.2) g/dL Albumin 3.3 L (3.9-5) g/dL Assessment and Plan - Patient Problems (1) Missed dialysis Current Visit: Yes Status: Acute Plan to address problem: Per ED record patients co founder and chairman, Dr. Neely notified of patient status and She recommended that patient be admitted to the hospitalist service and they will provide dialysis in the morning. Discussed significant of treamtnet compliance (2) End-stage renal disease needing dialysis Current Visit: Yes Status: Chronic Plan to address problem: Continue HD per renal (3) HTN (hypertension) Current Visit: Yes Status: Chronic Qualifiers: Qualified Code(s): I10 - Essential (primary) hypertension Plan to address problem: Monitor blood pressure Resume home anti-hypertensive As needed hydralazine (4) Abdominal pain Current Visit: Yes Status: Acute Plan to address problem: ? cause likely 2/2 to uremic syndrome/missed HD/Cr 19 patient reports having nause and abdominal pain-pain level 3/10 at time of assessment Abdominal x-ray shows persistent cardiomegaly and no acute finding. (5) DVT prophylaxis Current Visit: Yes Status: Acute Plan to address problem: heparin
[2020-07-16] MEDS ORDERED: traMADol 50 MG TAB PO PRN (00:13)
[2020-07-16] MEDS ORDERED: traZODone 50 MG TAB PO PRN (00:13)
[2020-07-16] MEDS: cloNIDine 0.1 MG TAB PO SCH ×2 (01:23→17:54)
[2020-07-16] MEDS: carvediloL 25 MG TAB PO SCH ×2 (01:23→17:53)
[2020-07-16] MEDS ORDERED: hydrALAZINE 20 MG/1 ML INJ IV PRN (06:39)
[2020-07-16] MEDS ORDERED: ALBUTEROL 8.5 GM MDI INHALATION IH PRN (09:54)
[2020-07-16] MEDS ORDERED: NIFEdipine XL 60 MG TAB PO SCH (10:00)
[2020-07-16] MEDS ORDERED: carvediloL 25 MG TAB PO SCH (10:00)
[2020-07-16] MEDS ORDERED: amLODIPine 10 MG TAB PO SCH (10:00)
[2020-07-16] MEDS ORDERED: SODIUM CHLORIDE 0.9% 100 ML IV PRN (10:00)
[2020-07-16] MEDS ORDERED: CLONIDINE HCL 0.3 MG PO SCH (10:00)
[2020-07-16] MEDS ORDERED: HEPARIN 5,000 UNIT/1 ML VIAL SUB-Q SCH (10:00)
[2020-07-16] MEDS ORDERED: FAMOTIDINE 20 MG/2 ML INJ IV SCH ×2 (10:00)
[2020-07-16] MEDS ORDERED: ALBUTEROL 2.5 MG/3 ML NEBU IH PRN (10:07)
--- NOTE | 2020-07-16 10:29 | Discharge Summary ---
Providers - Providers Date of Admission: 07/15/20 23:55 Date of discharge: 07/16/20 Attending physician: SHANDA MAGUIRE 07/15/20 23:39 Consult to Physician [CONS] Routine Comment: Dr. Washington spoke with Dr. Neely @ [id number] Consulting Provider: ALIRIO NEELY Physician Instructions: Reason For Exam: ESRD needing dialysis Primary care physician: BRENDA PARADA Hospitalization Condition: Stable Hospital course: This is a 24-year-old man with end-stage renal disease on hemodialysis who presented to the emergency department with abdominal pain and missed dialysis. He was on his way to his dialysis unit but presented to the emergency department instead due to lower abdominal pain. Abdominal x-ray in the ER did not show any acute pathology. Patient was admitted for observation. Nephrology was consulted for hemodialysis. CT abdomen pelvis obtained and showed bladder wall thickening likely from cystitis. Patient was tolerating diet and did not have any nausea or vomiting. He was initiated on antibiotic for cystitis and was discharged home in stable condition with outpatient follow-up. Disposition: DC- TO HOME OR SELFCARE Final Discharge Diagnosis (Prints w/discharge instructions): Missed hemodialysis. End-stage renal disease. Hypertension. Abdominal pain likely secondary to Possible cystitis Time spent for discharge: 34 minutes Core Measure Documentation - Palliative Care Palliative Care/ Comfort Measures: Not Applicable - Core Measures Any of the following diagnoses?: none Exam - Constitutional Vitals: Temp Pulse Resp BP Pulse Ox 97.4 F L 76 18 155/92 100 07/16/20 09:22 07/16/20 09:22 07/16/20 09:22 07/16/20 09:22 07/16/20 09:22 General appearance: Present: no acute distress, well-nourished - EENT Eyes: Present: PERRL ENT: hearing intact, clear oral mucosa - Neck Neck: Present: supple, normal ROM - Respiratory Respiratory effort: normal Respiratory: bilateral: CTA - Cardiovascular Heart Sounds: Present: S1 & S2. Absent: rub, click - Extremities Extremities: pulses symmetrical, No edema Peripheral Pulses: within normal limits - Abdominal General gastrointestinal: Present: soft, non-distended, normal bowel sounds - Integumentary Integumentary: Present: clear, warm, dry - Musculoskeletal Musculoskeletal: gait normal, strength equal bilaterally - Psychiatric Psychiatric: appropriate mood/affect, intact judgment & insight - Neurologic Neurologic: CNII-XII intact, moves all extremities Plan Activity: advance as tolerated Weight Bearing Status: Weight Bear as Tolerated Diet: renal Follow up with: BRENDA PARADA MD [Primary Care Provider] - 3-5 Days Prescriptions: Ciprofloxacin HCl [Ciprofloxacin TAB] 250 mg PO BID #10 tablet
[2020-07-16 12:09] LABS: Hepatitis B Surface Antigen Non-Reactive (Negative); Hepatitis C Virus Antibody Non-Reactive (NonReactive)
--- NOTE | 2020-07-16 12:09 | Electrocardiograph Report ---
[facility] Test Date: 2020-07-15 Test Time: 23:11:32 Pat Name: ANY CARLSON Department: Room: A476 1 Gender: M Anesthesia Technician: CLINTON : 1995 Requested By: SURAJ PRESCOTT Order Number: [id number] Reading MD: Maicol Bravo Measurements Intervals [place] Rate: 80 P: 57 ID: [id number] QRS: 73 QRSD: 92 T: 189 QT: 431 QTc: 498 Interpretive Statements Sinus rhythm Probable left atrial enlargement Nonspecific T abnormalities, lateral leads Prolonged QT interval No previous ECG available for comparison Electronically Signed On 07-16-2020 12:09:21 EDT by Maicol Bravo
--- NOTE | 2020-07-16 12:20 | Cat Scan Report ---
CT ABDOMEN AND PELVIS WITHOUT IV CONTRAST INDICATION: Lower abdominal pain, shortness of breath.. COMPARISON: CT 3 days prior. TECHNIQUE: All CT scans at this facility use dose modulation, automated exposure control, iterative reconstructi on or weight based dosing, when appropriate, to reduce radiation dose to as low as reasonably achieva ble. FINDINGS: Lung Bases: Mild groundglass opacities throughout both lower lungs may be due to pulmonary edema. Car diomegaly is again noted. There is persistent pleural fluid along the right major fissure which is st able. Skeletal System: No acute abnormality. ABDOMEN: Liver: No significant abnormality. Gallbladder: No significant abnormality. Bile Ducts: No significant abnormality. Pancreas: No significant abnormality. Spleen: No significant abnormality. Adrenals: No significant abnormality. Right Kidney: Stable, small. Left Kidney: Stable, small. Upper GI tract: No significant abnormality. Lymph Nodes: No significant adenopathy. Aorta: No significant abnormality. Additional Findings: No significant abnormality. PELVIS: Colon: No acute abnormality. Animal diverticulosis is noted. Urinary Bladder and Distal Ureters: Bladder is decompressed, this may account at least in part for bl adder wall thickening. Appendix: No significant abnormality. Lymph Nodes: No significant adenopathy. Additional Findings: None. IMPRESSION: 1. Bladder wall thickening may be due at least in part to partial decompression. However, cystitis c ould have this appearance. 2. Incidental findings, as above, unchanged.. Signer Name: To Thrasher MD Signed: 07/16/2020 12:16 PM Workstation Name: [id number]
--- NOTE | 2020-07-16 13:44 | Consultation ---
History of Present Illness - Reason for Consult Consult date: 07/16/20 end stage renal disease - History of Present Illness This is a 24-year-old man with end-stage renal disease on hemodialysis who presented to the emergency department with abdominal pain and missed dialysis. He was on his way to his dialysis unit but presented to the emergency department instead due to lower abdominal pain. He describes it as intermittent, 5/10 in intensity and with no aggravating or alleviating factors. He denies nausea, vomiting, constipation and diarrhea. Nephrology was consulted for ESRD managem ent. Past History Past Medical History: ESRD, hypertension Past Surgical History: No surgical history Social history: lives with family, smoking Family history: hypertension, other (kidney disease requiring HD) Medications and Allergies Allergies Allergy/AdvReac Type Severity Reaction Status Date / Time No Known Allergies Allergy Verified 06/14/20 23:31 Home Medications Medication Instructions Recorded Confirmed Last Taken Type carvediloL [Coreg] 25 mg PO BID #60 tablet 09/10/14 06/14/20 01/11/16 Rx cloNIDine HCL [Catapres] 0.3 mg PO BID 02/26/19 06/14/20 Unknown History NIFEdipine XL [Procardia Xl] 60 mg PO BID 06/14/20 06/14/20 Unknown History Albuterol Mdi (or & Nicu Only) 2 puff IH QID PRN #8.5 gram 06/17/20 Unknown Rx [ProAir HFA Inhaler] Active Meds: Active Medications Acetaminophen (Acetaminophen 325 Mg Tab) 650 mg PO Q4H PRN PRN Reason: Pain MILD(1-3)/Fever >100.5/TAN Al Hydrox/Mg Hydrox/Simethicone (Alum-Mag Hydroxide-Simethicone [phone]/5ml Oral Liqd 30 Ml) 30 ml PO Q4H PRN PRN Reason: Indigestion Albuterol (Albuterol 2.5 Mg/3 Ml Nebu) 2.5 mg IH Q4HRT PRN PRN Reason: Shortness Of Breath Amlodipine Besylate (Amlodipine 10 Mg Tab) 10 mg PO QDAY [facility] Carvedilol (Carvedilol 25 Mg Tab) 25 mg PO BID [facility] Last Admin: 07/16/20 01:23 Dose: 25 mg Documented by: Clonidine HCl (Clonidine 0.1 Mg Tab) 0.3 mg PO Q12HR [facility] Last Admin: 07/16/20 01:23 Dose: 0.3 mg Documented by: Famotidine (Famotidine 20 Mg/2 Ml Inj) 20 mg IV DAILY [facility] Heparin Sodium (Porcine) (Heparin 5,000 Unit/1 Ml Vial) 5,000 unit SUB-Q Q12HR [facility] Hydralazine HCl (Hydralazine 20 Mg/1 Ml Inj) 5 mg IV Q4HR PRN PRN Reason: SBP >/=160; DBP >/=100 Sodium Chloride (Nacl 0.9%) 100 mls @ 999 mls/hr IV GONZALES PRN PRN Reason: Hypotension Magnesium Hydroxide (Magnesium Hydroxide (Mom) Oral Liqd Udc) 30 ml PO Q4H PRN PRN Reason: Constipation Metoclopramide HCl (Metoclopramide 10 Mg/2 Ml Inj) 2.5 mg IV Q6H PRN PRN Reason: Nausea And Vomiting Ondansetron HCl (Ondansetron 4 Mg/2 Ml Inj) 4 mg IV Q8H PRN PRN Reason: Nausea And Vomiting Sodium Chloride (Sodium Chloride 0.9% 10 Ml Flush Syringe) 10 ml IV BID [facility] Sodium Chloride (Sodium Chloride 0.9% 10 Ml Flush Syringe) 10 ml IV PRN PRN PRN Reason: LINE FLUSH Tramadol HCl (Tramadol 50 Mg Tab) 50 mg PO Q4H PRN PRN Reason: Pain, Moderate (4-6) Trazodone HCl (Trazodone 50 Mg Tab) 50 mg PO QHS PRN PRN Reason: Insomnia Review of Systems Constitutional: no fever, no chills Ears, nose, mouth and throat: no nasal congestion, no nasal discharge Cardiovascular: no chest pain, no dyspnea on exertion Respiratory: no cough, no congestion Gastrointestinal: abdominal pain, no nausea, no vomiting, no diarrhea Rectal: no bleeding Musculoskeletal: no muscle weakness, no muscle cramps Integumentary: no rash, no pruritis Neurological: no weakness, no parathesias Psychiatric: no anxiety, no paranoia Hematologic/Lymphatic: no easy bruising, no easy bleeding Allergic/Immunologic: no urticaria, no allergic rhinitis Exam - Vital Signs Vital signs: Vital Signs Temp Pulse Resp BP Pulse Ox 98.3 F 109 H 20 128/74 94 07/15/20 13:45 07/15/20 13:45 05/12/21 13:45 07/15/20 13:45 07/15/20 13:45 - Physical Exam Narrative exam: General appearance: No acute distress EENT: Anicteric sclera, hearing intact Neck: Supple Respiratory: Normal effort, CTA bilaterally Cardiovascular: RRR, no rub Extremities: B/l LE edema Abdominal: Soft, nontender, nondistended Integumentary: Dry, intact Musculoskeletal: No joint swelling or erythema Psychiatric: Appropriate mood/affect, judgment intact Neurologic: No focal deficits, moves all extremities Results - Lab Results 07/15/20 14:13 07/15/20 14:13 Most recent lab results Calcium 7.5 mg/dL (8.4-10.2) L 07/15/20 14:13 Assessment and Plan Assessment - End-stage renal disease on hemodialysis - Hypertension - Anemia of ESRD - Hyperparathyroidism - Abdominal pain Recommendations - Plan for HD today with 3 L UF - Continue home antihypertensives - Hold antihypertensives on hemodialysis days for systolics less than 160 - Epogen with HD once bp better controlled - Check urinalysis and CX if able to provide sample - Continue binders - ESRD diet with 1.4 g/kg per day protein - Renally dose medication for creatinine clearance less than 15 cc/min
[2020-07-16 13:59] LABS: Bilirubin,Urine NEG (Negative); Blood,Urine NEG (Negative); Color,Urine Yellow (Yellow); Urobilinogen,Urine < 2.0 mg/dL (<2.0)
[2020-07-16 16:42] VITALS: BP 189/98
== END 2020-07-16 19:13 | disposition home or self-care (01) ==
LOC: ED 13:41 → 4A 23:55
PROVIDERS: ADMIT Internal Medicine Geriatric Medicine; ATTEND Internal Medicine
DX: I11.0 Hypertensive heart disease with heart failure (principal); N18.6 End stage renal disease; R07.89 Other chest pain; R10.9 Unspecified abdominal pain; D63.1 Anemia in chronic kidney disease; E21.3 Hyperparathyroidism, unspecified; Z91.15 Patient's noncompliance with renal dialysis; Z99.2 Dependence on renal dialysis
CPT/HCPCS: 36415; 74022; 74176; 80053; 80074; 81001; 85025; 87076; 87086; 87186; 93005; 94644; 96374; 96375; 99285; G0257; G0378; J0360

== ENCOUNTER 2020-10-16 12:24 | Emergency (ER) | payer MEDICAID ==
[2020-10-16 13:23] LABS: Basophils # (Auto) 0.1 K/mm3 (0.0-0.1); Basophils % (Auto) 0.9 % (0.0-1.8); Eosinophils # (Auto) 0.4 K/mm3 (0.0-0.4); Eosinophils % (Auto) 4.7 % (0.0-4.3); Hematocrit 34.4 % (35.5-45.6); Lymphocytes # (Auto) 0.5 K/mm3 (1.2-5.4); Lymphocytes % (Auto) 5.4 % (13.4-35.0); Mean Corpuscular HGB Conc 35 % (32-34); Mean Corpuscular Volume 89 fl (84-94); Monocytes # (Auto) 0.8 K/mm3 (0.0-0.8); Monocytes % (Auto) 9.7 % (0.0-7.3); Platelet Count 293 K/mm3 (140-440); Red Blood Count 3.87 M/mm3 (3.65-5.03); Red Cell Distribution Width 15.8 % (13.2-15.2)
[2020-10-16 13:37] VITALS: BP 164/106
[2020-10-16 13:44] LABS: Calcium 9.7 mg/dL (8.4-10.2)
--- NOTE | 2020-10-16 14:10 | Emergency Department Report ---
ED General Adult HPI - General Chief complaint: High BP Stated complaint: BLOODPRESSURE HIGH PER DIAYLSIS NURSE Time Seen by Provider: 10/16/20 13:37 Source: patient Mode of arrival: Ambulatory Limitations: No Limitations - History of Present Illness Initial comments: 25-year-old -Ind[place]ian male with a past medical history of end-stage renal disease currently on hemodialysis Wednesdays and Fridays was sent to the ER from dialysis clinic because his blood pressure was high when he went in for dialysis this morning. Patient states that his blood pressure was 259/120 at the clinic. Patient states that he has a known history of hypertension and he is on 3 different blood pressure medications all of which he took prior to going to dialysis this morning. Patient states that he has been doing well and currently denies any symptoms. MD Complaint: elevated blood pressure -: This morning - Related Data Home Medications Medication Instructions Recorded Confirmed Last Taken cloNIDine HCL [Catapres] 0.3 mg PO BID 02/26/19 06/14/20 Unknown NIFEdipine XL [Procardia Xl] 60 mg PO BID 06/14/20 06/14/20 Unknown Previous Rx's Medication Instructions Recorded Last Taken Type carvediloL [Coreg] 25 mg PO BID #60 tablet 09/10/14 01/11/16 Rx Albuterol Mdi (or & Nicu Only) 2 puff IH QID PRN #8.5 gram 06/17/20 Unknown Rx [ProAir HFA Inhaler] Ciprofloxacin HCl [Ciprofloxacin 250 mg PO BID #10 tablet 07/16/20 Unknown Rx TAB] Allergies Allergy/AdvReac Type Severity Reaction Status Date / Time No Known Allergies Allergy Verified 06/14/20 23:31 ED Review of Systems ROS: Stated complaint: BLOODPRESSURE HIGH PER DIAYLSIS NURSE Other details as noted in HPI Comment: All other systems reviewed and negative Constitutional: denies: chills, fever Eyes: denies: eye pain, eye discharge, vision change Respiratory: denies: cough, shortness of breath, SOB with exertion Cardiovascular: denies: chest pain, palpitations, edema, syncope Gastrointestinal: denies: abdominal pain, nausea, diarrhea, constipation, hematemesis Genitourinary: denies: urgency, dysuria Musculoskeletal: denies: back pain, joint swelling, arthralgia Skin: denies: rash, lesions, change in color, change in hair/nails, pruritus Neurological: denies: headache, weakness, paresthesias, confusion, abnormal gait , vertigo Psychiatric: denies: anxiety, depression, auditory hallucinations, visual hallucinations, homicidal thoughts, suicidal thoughts Hematological/Lymphatic: denies: easy bleeding, easy bruising, swollen glands ED Past Medical Hx - Past Medical History Previous Medical History?: Yes Hx Hypertension: Yes Hx Congestive Heart Failure: No Hx Diabetes: No Hx Renal Disease: Yes (HD M,W,F) Hx Asthma: No Hx COPD: No Hx HIV: No - Surgical History Past Surgical History?: Yes Additional Surgical History: Dialysis access - Social History Smoking Status: Current Some Day Smoker - Medications Home Medications: Home Medications Medication Instructions Recorded Confirmed Last Taken Type carvediloL [Coreg] 25 mg PO BID #60 tablet 09/10/14 06/14/20 01/11/16 Rx cloNIDine HCL [Catapres] 0.3 mg PO BID 02/26/19 06/14/20 Unknown History NIFEdipine XL [Procardia Xl] 60 mg PO BID 06/14/20 06/14/20 Unknown History Albuterol Mdi (or & Nicu Only) 2 puff IH QID PRN #8.5 gram 06/17/20 Unknown Rx [ProAir HFA Inhaler] Ciprofloxacin HCl [Ciprofloxacin 250 mg PO BID #10 tablet 07/16/20 Unknown Rx TAB] ED Physical Exam - General Limitations: No Limitations General appearance: alert, in no apparent distress - Head Head exam: Present: atraumatic, normocephalic, normal inspection - Eye Eye exam: Present: normal appearance, PERRL, EOMI Pupils: Present: normal accommodation - ENT ENT exam: Present: mucous membranes moist - Neck Neck exam: Present: normal inspection, full ROM. Absent: meningismus - Respiratory Respiratory exam: Present: normal lung sounds bilaterally. Absent: respiratory distress, wheezes, rales, rhonchi - Cardiovascular Cardiovascular Exam: Present: regular rate, normal rhythm, normal heart sounds - GI/Abdominal GI/Abdominal exam: Present: soft. Absent: distended, tenderness, guarding, rebound - Extremities Exam Extremities exam: Present: normal inspection - Neurological Exam Neurological exam: Present: alert, oriented X3 - Psychiatric Psychiatric exam: Present: normal affect, normal mood - Skin Skin exam: Present: intact ED Course Vital Signs 10/16/20 10/16/20 12:38 13:37 Temperature 98.7 F Pulse Rate 106 H Respiratory 18 Rate Blood Pressure 202/137 164/106 [Right] O2 Sat by Pulse 95 Oximetry ED Medical Decision Making - Lab Data Result diagrams: 10/16/20 13:08 10/16/20 13:08 - Medical Decision Making 25-year-old -[place] male with a past medical history of end-stage renal disease currently on hemodialysis Wednesdays and Fridays was sent to the ER from dialysis clinic because his blood pressure was high when he went in for dialysis this morning. Patient states that his blood pressure was 259/120 at the clinic. Patient states that he has a known history of hypertension and he is on 3 different blood pressure medications all of which he took prior to going to dialysis this morning. Patient states that he has been doing well and currently denies any symptoms. Patient blood pressure improving at 164/106 in the ER without any intervention. Labs were ordered as part of triage protocol and shows no acute changes compared to his previous labs. Patient currently denies any symptoms. He is not toxic appearing, not in any acute distress, he is neurologically intact with a normal gait. Discussed lab results with patient. Recommend that he continues his regular blood pressure regimen, and he should be able to resume his regular dialysis regimen. There is no indication at this time for any further testing, or admission. Patient expressed understanding of all instructions and agree with plan. Patient was stable at time of discharge. Critical care attestation.: If time is entered above; I have spent that time in minutes in the direct care of this critically ill patient, excluding procedure time. ED Disposition Clinical Impression: HTN (hypertension), End stage renal disease Disposition: HOME / SELF CARE / HOMELESS Is pt being admited?: No Does the pt Need Aspirin: No Condition: Stable Instructions: Hypertension, Adult, [id number], Hypertension (ED) Additional Instructions: Repeat blood pressure here in the ER shows improvement, at 164/106 without any intervention. You should be able to resume your dialysis today. I recommend that you continue your routine blood pressure medication regimen. Follow-up closely with your director of clinical education and your primary care doctor. Return to the ER if your symptoms returns or worsens in any way. Referrals: PRIMARY CARE, [Referring] - 3-5 Days Time of Disposition: 14:10
== END 2020-10-16 14:28 | disposition home or self-care (01) ==
LOC: ED 12:24
DX: I12.0 Hypertensive chronic kidney disease with stage 5 chronic kidney disease or end stage renal disease (principal); N18.6 End stage renal disease; Z98.890 Other specified postprocedural states; F17.200 Nicotine dependence, unspecified, uncomplicated
CPT/HCPCS: 36415; 80048; 85025; 99283

== ENCOUNTER 2021-01-06 13:49 | Emergency (ER) | payer MEDICAID ==
[2021-01-06 13:57] VITALS: BP 137/92
[2021-01-06] MEDS ORDERED: oxyCODONE /ACETAMINOPHEN 5-325MG TAB PO ONE (14:33)
[2021-01-06 14:37] LABS: Basophils % (Auto) 0.6 % (0.0-1.8); Eosinophils % (Auto) 1.6 % (0.0-4.3); Hematocrit 39.4 % (35.5-45.6); Hemoglobin 12.6 gm/dl (11.8-15.2); Lymphocytes # (Auto) 0.7 K/mm3 (1.2-5.4); Lymphocytes % (Auto) 9.7 % (13.4-35.0); Mean Corpuscular HGB Conc 32 % (32-34); Mean Corpuscular Volume 93 fl (84-94); Monocytes % (Auto) 9.7 % (0.0-7.3); Platelet Count 246 K/mm3 (140-440); Red Blood Count 4.23 M/mm3 (3.65-5.03); Red Cell Distribution Width 17.2 % (13.2-15.2)
[2021-01-06 14:38] LABS: Eosinophils # (Auto) 0.1 K/mm3 (0.0-0.4); Monocytes # (Auto) 0.7 K/mm3 (0.0-0.8)
[2021-01-06 14:52] LABS: Calcium 9.4 mg/dL (8.4-10.2)
--- NOTE | 2021-01-06 15:50 | Emergency Department Report ---
HPI - General Chief Complaint: Back Pain/Injury Time Seen by Provider: 01/06/21 14:06 - HPI HPI: This is a 25-year-old -[place] male presents to the emergency department with low back pain that started just prior to presentation. Because of the back pain the patient was unable to get dialysis today. He has end-stage renal disease on hemodialysis on Monday/Monday/Monday and did get dialysis on Monday, 2 days ago. His editor in chief newspaper is listed as Dr. Lugo. He has not taken anything for his back pain prior to presentation. He denies any numbness or paresthesias, problems with bowel or bladder, focal or lateralizing weakness. He denies any trauma, fall, injury, or obvious inciting event. ED Past Medical Hx - Past Medical History Previous Medical History?: Yes Hx Hypertension: Yes Hx Congestive Heart Failure: No Hx Diabetes: No Hx Renal Disease: Yes (HD M,W,F) Hx Asthma: No Hx COPD: No Hx HIV: No - Surgical History Past Surgical History?: Yes Additional Surgical History: Dialysis access - Social History Smoking Status: Current Some Day Smoker - Medications Home Medications: Home Medications Medication Instructions Recorded Confirmed Last Taken Type carvediloL [Coreg] 25 mg PO BID #60 tablet 09/10/14 06/14/20 01/11/16 Rx cloNIDine HCL [Catapres] 0.3 mg PO BID 02/26/19 06/14/20 Unknown History NIFEdipine XL [Procardia Xl] 60 mg PO BID 06/14/20 06/14/20 Unknown History Albuterol Mdi (or & Nicu Only) 2 puff IH QID PRN #8.5 gram 06/17/20 Unknown Rx [ProAir HFA Inhaler] Ciprofloxacin HCl [Ciprofloxacin 250 mg PO BID #10 tablet 07/16/20 Unknown Rx TAB] Cyclobenzaprine [Flexeril] 10 mg PO TID PRN #10 tablet 01/06/21 Unknown Rx ED Review of Systems ROS: Stated complaint: BACK PAIN Other details as noted in HPI Comment: All other systems reviewed and negative Constitutional: denies: chills, fever Eyes: denies: eye pain, vision change ENT: denies: ear pain, throat pain Respiratory: denies: cough, shortness of breath Cardiovascular: denies: chest pain, palpitations Gastrointestinal: denies: abdominal pain, vomiting Genitourinary: denies: dysuria, discharge Musculoskeletal: back pain. denies: arthralgia Skin: denies: rash, lesions Neurological: denies: headache, numbness, paresthesias Physical Exam - Physical Exam Vital Signs: Vital Signs 01/06/21 13:54 Temperature 98.4 F Pulse Rate 102 H Respiratory 16 Rate Blood Pressure 137/92 [Right] O2 Sat by Pulse 96 Oximetry Physical Exam: GENERAL: The patient is well-developed well-nourished. HENT: Normocephalic. Atraumatic. Patient has moist mucous membranes. EYES: Extraocular motions are intact. NECK: Supple. Trachea is midline. CHEST/LUNGS: Clear to auscultation. There is no respiratory distress noted. HEART/CARDIOVASCULAR: Regular. There is no tachycardia. There is no murmur. ABDOMEN: Abdomen is soft, nontender. Patient has normal bowel sounds. SKIN: Skin is warm and dry. NEURO: The patient is awake, alert, and oriented. The patient is cooperative. The patient has no focal neurologic deficits. Normal speech. MUSCULOSKELETAL: There is no tenderness or deformity. There is no limitation range of motion. Muscle strength 5 out of 5 for upper and lower extremities bilaterally. BACK: There is both midline and bilateral paraspinal lumbar tenderness to palpation. ED Course Vital Signs 01/06/21 13:54 Temperature 98.4 F Pulse Rate 102 H Respiratory 16 Rate Blood Pressure 137/92 [Right] O2 Sat by Pulse 96 Oximetry - Consultations Consultation #1: 01/06/21 15:[address] Rodriguez, one of the editor in chief newspaper with [facility] nephrology, regarding the patient's missing dialysis today. He was able to get in touch with [facility] dialysis center and the patient is set up for a dialysis appointment tomorrow at 10:30 AM. ED Medical Decision Making - Lab Data Result diagrams: 01/06/21 14:14 01/06/21 14:14 Lab Results 01/06/21 01/06/21 Range/Units 14:14 14:14 WBC 6.8 (4.5-11.0) K/mm3 RBC 4.23 (3.65-5.03) M/mm3 Hgb 12.6 (11.8-15.2) gm/dl Hct 39.4 (35.5-45.6) % MCV 93 (84-94) fl MCH 30 (28-32) pg MCHC 32 (32-34) % RDW 17.2 H (13.2-15.2) % Plt Count 246 (140-440) K/mm3 Lymph % (Auto) 9.7 L (13.4-35.0) % [place] % (Auto) 9.7 H (0.0-7.3) % Eos % (Auto) 1.6 (0.0-4.3) % Baso % (Auto) 0.6 (0.0-1.8) % Lymph # (Auto) 0.7 L (1.2-5.4) K/mm3 [place] # (Auto) 0.7 (0.0-0.8) K/mm3 Eos # (Auto) 0.1 (0.0-0.4) K/mm3 Baso # (Auto) 0.0 (0.0-0.1) K/mm3 Seg Neutrophils % 78.4 H (40.0-70.0) % Seg Neutrophils # 5.4 (1.8-7.7) K/mm3 Sodium 138 (137-145) mmol/L Potassium 4.7 (3.6-5.0) mmol/L Chloride 102.2 (98-107) mmol/L Carbon Dioxide 21 L (22-30) mmol/L Anion Gap 20 mmol/L BUN 45 H (9-20) mg/dL Creatinine 13.6 H (0.8-1.3) mg/dL Estimated GFR 5 ml/min BUN/Creatinine Ratio 3 % Glucose 120 H (75-100) mg/dL Calcium 9.4 (8.4-10.2) mg/dL - Medical Decision Making This patient presents with low back pain that started around the time of his dialysis today, just prior to presentation, and therefore the patient did not receive dialysis. He denies any trauma, injury or inciting event. There is both midline and bilateral paraspinal tenderness to palpation. Patient does not have any problems with bowel or bladder, numbness or paresthesias, focal or lateralizing weakness, or any other neurological deficits. For these reasons I did not feel that the patient required any imaging of the back or spine. Vital signs reassuring including being afebrile. Patient's labs are mostly unremarkable except for the renal insufficiency consistent with his end-stage renal disease on hemodialysis. I spoke with the editor in chief newspaper on for [facility] nephrology who was able to facilitate a dialysis appointment for patient tomorrow at his clinic. Patient was given a dose of analgesia and upon reevaluation is feeling greatly improved, sitting there playing on his phone in no acute distress. Patient was seen ambulatory in the emergency department and both appears and feels stable. Critical Care Time: No Critical care attestation.: If time is entered above; I have spent that time in minutes in the direct care o f this critically ill patient, excluding procedure time. ED Disposition Clinical Impression: Back pain, End-stage renal disease on hemodialysis Disposition: HOME / SELF CARE / HOMELESS Is pt being admited?: No Condition: Stable Instructions: Acute Back Pain, Adult Additional Instructions: You have been set up for a dialysis appointment for tomorrow at 10:30 AM at your [facility] dialysis clinic. Please follow-up with a primary care physician in the next few days. I have given you a referral for a local orthopedist, Dr. Amaya, to follow-up regarding your back pain. You have been prescribed a medication that is sedating and therefore should not be taken prior to driving, working, and responsible for children and in no way should be mixed with alcohol of any quantity. Return to the emergency department with any worsening of your symptoms, new or concerning symptoms not addressed during this current emergency department visit, or with any acute distress. Prescriptions: Cyclobenzaprine [Flexeril] 10 mg PO TID PRN #10 tablet PRN Reason: Muscle Spasm Referrals: YVONNE AMAYA MD [Staff Physician] - 3-5 Days SHANIQUA TERAN MD [Staff Physician] - 3-5 Days Time of Disposition: 15:50
== END 2021-01-06 16:07 | disposition home or self-care (01) ==
LOC: ED 13:49
DX: M54.50 Low back pain, unspecified (principal); I12.0 Hypertensive chronic kidney disease with stage 5 chronic kidney disease or end stage renal disease; N18.6 End stage renal disease; F17.200 Nicotine dependence, unspecified, uncomplicated; Z99.2 Dependence on renal dialysis; Z79.899 Other long term (current) drug therapy
CPT/HCPCS: 36415; 80048; 85025; 99283

== ENCOUNTER 2021-01-07 11:16 | Observation (INO) | payer MEDICAID ==
[2021-01-07 11:21] VITALS: BP 131/80
[2021-01-07] MEDS ORDERED: ACETAMINOPHEN 500 MG TAB PO ONE (13:39)
--- NOTE | 2021-01-07 14:45 | Cat Scan Report ---
CT LUMBAR SPINE WITHOUT CONTRAST INDICATION: severe lower central back pain. TECHNIQUE: Axial CT images of the spine were obtained. Sagittal and coronal reformatted images were produced. Al l CT scans at this location are performed using CT dose reduction for ALARA by means of automated exp osure control. COMPARISON: None available. FINDINGS: ACUTE FRACTURE(S) OR SUBLUXATION: None. SPINAL DEGENERATIVE CHANGES: No significant degenerative changes. There is overall decreased cortical mineralization with subtle increased sclerosis adjacent to the vertebral endplates likely secondary to chronic renal disease. PARASPINAL SOFT TISSUES: No soft tissue swelling or other acute abnormalities. ADDITIONAL FINDINGS: There is bilateral renal atrophy. IMPRESSION: 1. No acute fracture or subluxation in the spine in neutral position. No acute findings. 2. The bone mineralization pattern is suggestive of chronic medical renal disease and associated tobin l osteodystrophy. Signer Name: Sacha Mixon MD Signed: 01/07/2021 2:40 PM Workstation Name: [id number]
[2021-01-07 15:23] LABS: Calcium 9.6 mg/dL (8.4-10.2)
[2021-01-07 15:33] LABS: Basophils % (Auto) 0.4 % (0.0-1.8); Eosinophils # (Auto) 0.1 K/mm3 (0.0-0.4); Eosinophils % (Auto) 1.6 % (0.0-4.3); Hematocrit 38.5 % (35.5-45.6); Hemoglobin 12.6 gm/dl (11.8-15.2); Lymphocytes # (Auto) 0.6 K/mm3 (1.2-5.4); Lymphocytes % (Auto) 7.7 % (13.4-35.0); Mean Corpuscular HGB Conc 33 % (32-34); Mean Corpuscular Volume 93 fl (84-94); Monocytes # (Auto) 0.3 K/mm3 (0.0-0.8); Monocytes % (Auto) 4.6 % (0.0-7.3); Platelet Count 220 K/mm3 (140-440); Red Blood Count 4.13 M/mm3 (3.65-5.03); Red Cell Distribution Width 17.2 % (13.2-15.2)
--- NOTE | 2021-01-07 17:30 | Emergency Department Report ---
ED Back Pain/Injury HPI - General Chief Complaint: Back Pain/Injury Stated Complaint: BACK PAIN/SEEN HERE YESTERDAY FOR SAME Time Seen by Provider: 01/07/21 13:32 Source: patient Limitations: No Limitations - History of Present Illness Initial Comments: CC: back pain HPI: Matthew si a 25 yo male with hx of HTN, ESRD on HD, cardiolmyopathy, who presents with severe back pain. Back pain has been present for 1 1/2 years worse over the last 2 days. Unable to sit in dialysis chair due to severe pain. Has missed dialysis this week due to inability to tolerate back pain. He de nies fever, trauma, leg weakness, bowel or bladder incontinence. Pain is centered right in the middle of his back lower feels like a jolt up of his spine when he moves. MD Complaint: back pain -: Gradual, days(s) (Worse over 2 days unable to tolerate dialysis due to severe pain, back pain began 1 1/2 years ago) Similar Symptoms Previously: Yes Place: home Radiation: none Severity: severe Consistency: constant Improves With: other (Standing up) Worsens With: sitting upright Associated Symptoms: denies other symptoms - Related Data Home Medications Medication Instructions Recorded Confirmed Last Taken cloNIDine HCL [Catapres] 0.3 mg PO BID 02/26/19 06/14/20 Unknown NIFEdipine XL [Procardia Xl] 60 mg PO BID 06/14/20 06/14/20 Unknown Previous Rx's Medication Instructions Recorded Last Taken Type carvediloL [Coreg] 25 mg PO BID #60 tablet 09/10/14 01/11/16 Rx Albuterol Mdi (or & Nicu Only) 2 puff IH QID PRN #8.5 gram 06/17/20 Unknown Rx [ProAir HFA Inhaler] Ciprofloxacin HCl [Ciprofloxacin 250 mg PO BID #10 tablet 07/16/20 Unknown Rx TAB] Cyclobenzaprine [Flexeril] 10 mg PO TID PRN #10 tablet 01/06/21 Unknown Rx Allergies Allergy/AdvReac Type Severity Reaction Status Date / Time No Known Allergies Allergy Verified 01/07/21 11:21 ED Review of Systems ROS: Stated complaint: BACK PAIN/SEEN HERE YESTERDAY FOR SAME Other details as noted in HPI Comment: All other systems reviewed and negative Constitutional: denies: chills, fever, malaise Respiratory: denies: cough, shortness of breath ED Past Medical Hx - Past Medical History Previous Medical History?: Yes Hx Hypertension: Yes Hx Congestive Heart Failure: No Hx Diabetes: No Hx Renal Disease: Yes (HD M,W,F) Hx Asthma: No Hx COPD: No Hx HIV: No - Surgical History Past Surgical History?: Yes Additional Surgical History: Dialysis access - Social History Smoking Status: Current Some Day Smoker Substance Use Type: None - Medications Home Medications: Home Medications Medication Instructions Recorded Confirmed Last Taken Type carvediloL [Coreg] 25 mg PO BID #60 tablet 09/10/14 06/14/20 01/11/16 Rx cloNIDine HCL [Catapres] 0.3 mg PO BID 02/26/19 06/14/20 Unknown History NIFEdipine XL [Procardia Xl] 60 mg PO BID 06/14/20 06/14/20 Unknown History Albuterol Mdi (or & Nicu Only) 2 puff IH QID PRN #8.5 gram 06/17/20 Unknown Rx [ProAir HFA Inhaler] Ciprofloxacin HCl [Ciprofloxacin 250 mg PO BID #10 tablet 07/16/20 Unknown Rx TAB] Cyclobenzaprine [Flexeril] 10 mg PO TID PRN #10 tablet 01/06/21 Unknown Rx ED Physical Exam - General Limitations: No Limitations General appearance: alert, in no apparent distress - Head Head exam: Present: atraumatic, normocephalic - Eye Eye exam: Present: normal appearance - ENT ENT exam: Present: mucous membranes moist - Neck Neck exam: Present: normal inspection, full ROM - Respiratory Respiratory exam: Present: normal lung sounds bilaterally. Absent: respiratory distress, wheezes, rales, rhonchi - Cardiovascular Cardiovascular Exam: Present: regular rate, normal rhythm, normal heart sounds. Absent: systolic murmur, diastolic murmur, rubs, gallop - GI/Abdominal GI/Abdominal exam: Present: soft, normal bowel sounds. Absent: distended, tenderness, guarding, rebound - Rectal Rectal exam: Present: deferred - Extremities Exam Extremities exam: Present: normal inspection - Back Exam Back exam: Present: normal inspection, full ROM. Absent: tenderness, CVA tenderness (R), CVA tenderness (L), muscle spasm, paraspinal tenderness, vertebral tenderness, rash noted - Neurological Exam Neurological exam: Present: alert, oriented X3 - Psychiatric Psychiatric exam: Present: normal affect, normal mood - Skin Skin exam: Present: warm, dry, intact, normal color. Absent: rash ED Course Vital Signs 01/07/21 11:19 Temperature 97.8 F Pulse Rate 92 H Respiratory 16 Rate Blood Pressure 131/80 [Left] O2 Sat by Pulse 96 Oximetry ED Medical Decision Making - Lab Data Result diagrams: 01/07/21 13:48 01/07/21 13:45 Laboratory Results - last 24 hr 01/07/21 01/07/21 13:45 13:48 WBC 7.4 RBC 4.13 Hgb 12.6 Hct 38.5 MCV 93 MCH 31 MCHC 33 RDW 17.2 H Plt Count 220 Lymph % (Auto) 7.7 L Bucks % (Auto) 4.6 Eos % (Auto) 1.6 Baso % (Auto) 0.4 Lymph # (Auto) 0.6 L Bucks # (Auto) 0.3 Eos # (Auto) 0.1 Baso # (Auto) 0.0 Seg Neutrophils % 85.7 H Seg Neutrophils # 6.3 Sodium 138 Potassium 5.0 Chloride 101.3 Carbon Dioxide 22 Anion Gap 20 BUN 54 H Creatinine 15.1 H Estimated GFR 5 BUN/Creatinine Ratio 4 Glucose 165 H Calcium 9.6 - Radiology Data Radiology results: report reviewed Patient Name: ANY CARLSON Gender: Male Date of : 1995 Referring Provider: MARY DAVIS Organization: [facility] Accession Number: [id number] Requested Date: January 07, 2021 13:39 Report Status: Final Requested Procedure: 1 Procedure Description: CT lumbar spine wo con Modality: CT Findings Reporting MD: Sacha Mixon Dictation Time: January 07, 2021 13:40 Physician General Internal Medicine: Not available Charge Master Coordinator Date: CT LUMBAR SPINE WITHOUT CONTRAST INDICATION: severe lower central back pain. TECHNIQUE: Axial CT images of the spine were obtained. Sagittal and coronal reformatted images were produced. All CT scans at this location are performed using CT dose reduction for ALARA by means of automated exposure control. COMPARISON: None available. FINDINGS: ACUTE FRACTURE(S) OR SUBLUXATION: None. SPINAL DEGENERATIVE CHANGES: No significant degenerative changes. There is overall decreased cortical mineralization with subtle increased sclerosis adjacent to the vertebral endplates likely secondary to chronic renal disease. PARASPINAL SOFT TISSUES: No soft tissue swelling or other acute abnormalities. ADDITIONAL FINDINGS: There is bilateral renal atrophy. IMPRESSION: 1. No acute fracture or subluxation in the spine in neutral position. No acute findings. 2. The bone mineralization pattern is suggestive of chronic medical renal disease and associated renal osteodystrophy. Signer Name: Sacha Mixon MD Signed: 01/07/2021 1:40 PM Workstation Name: [id number] - Medical Decision Making Back pain for 1-1/2 years worse over the past 2 days. I suspect back pain is due to renal osteodystrophy and symptomatic end-stage renal disease. No evidence of hyperkalemia. Dr. Rodriguez recommended admission for dialysis, fur ther evaluation and pain control. I spoke with Dr. Sosa hospitalist who accepted patient to his service Critical care attestation.: If time is entered above; I have spent that time in minutes in the direct care of this critically ill patient, excluding procedure time. ED Disposition Clinical Impression: Renal osteodystrophy, Back pain, End-stage renal disease on hemodialysis Disposition: 02 [facility]ORT TERM [facility]OSPITAL Is pt being admited?: Yes Does the pt Need Aspirin: No Condition: Stable Referrals: PRIMARY CARE, [Primary Care Provider] - 3-5 Days
== END 2021-01-07 18:23 | disposition left against medical advice (07) ==
LOC: ED 11:16 → 4A 17:23
PROVIDERS: ADMIT Internal Medicine; ATTEND Internal Medicine
DX: N25.0 Renal osteodystrophy (principal); I12.0 Hypertensive chronic kidney disease with stage 5 chronic kidney disease or end stage renal disease; N18.6 End stage renal disease; I42.9 Cardiomyopathy, unspecified; M54.9 Dorsalgia, unspecified; F17.210 Nicotine dependence, cigarettes, uncomplicated; Z99.2 Dependence on renal dialysis
CPT/HCPCS: 36415; 72131; 80048; 85025; 99284; G0378

== ENCOUNTER 2021-05-21 11:25 | Emergency (ER) | payer MEDICAID ==
[2021-05-21 11:38] VITALS: BP 176/104
== END 2021-05-22 00:34 | disposition home or self-care (01) ==
LOC: ED 11:25
DX: R10.9 Unspecified abdominal pain (principal); Z53.21 Procedure and treatment not carried out due to patient leaving prior to being seen by health care provider